=== PATIENT | male | born 1955 | race Caucasian/White ===

== ENCOUNTER 2016-12-13 18:38 | Observation (INO) | payer MEDICAID, OTHER ==
[~2016-12-13] VITALS: Ht 172.7 cm; Wt 81.5 kg
[~2016-12-13 18:38] MED LIST: AMLO-147 PO; CLON-379 PO; DOXA4TAB PO; FOLI-49 PO; ISOS10TA PO; SEVE800T10 PO; SIMV20TA2 PO
[2016-12-13 21:14] LABS: ADD SCAN DIFF NO
[2016-12-13 21:16] LABS: BASOPHILS % 0.4 % (0.0-2.0); EOSINOPHILS # 0.3 10^3/ul (0.0-0.5); EOSINOPHILS % 3.5 % (0.0-7.0); LYMPHOCYTES # 1.1 10^3/ul (0.8-2.9); LYMPHOCYTES % 14.1 % (15.0-51.0); MEAN CORPUSCULAR HEMOGLOBIN 30.5 pg (29.0-33.0); MEAN CORPUSCULAR HGB CONC 32.4 g/dl (32.0-37.0); MEAN CORPUSCULAR VOLUME 94.2 fl (82.0-101.0); MEAN PLATELET VOLUME 10.6 fl (7.4-10.4); MONOCYTE # 0.9 10^3/ul (0.3-0.9); MONOCYTES % 10.8 % (0.0-11.0); NEUTROPHIL # 5.6 10^3/ul (1.6-7.5); NEUTROPHILS % 70.8 % (39.0-77.0); PLATELET COUNT 231 10^3/UL (140-415); RED BLOOD COUNT 3.61 10^6/ul (4.70-6.10); RED CELL DISTRIBUTION WIDTH 13.5 % (11.5-14.5); WHITE BLOOD COUNT 7.9 10^3/ul (4.8-10.8)
[2016-12-13 21:31] LABS: INR 1.27; PT RATIO 1.3
[2016-12-13 21:32] LABS: PARTIAL THROMBOPLASTIN TIME 30.2 Sec (25.0-35.0)
[2016-12-13 21:38] LABS: ALBUMIN 4.4 g/dl (3.3-4.9); POTASSIUM 4.3 mmol/L (3.5-5.1)
[2016-12-13 21:41] LABS: ALBUMIN/GLOBULIN RATIO 1.25; CALCIUM 9.6 mg/dl (8.4-10.2); CREATININE 12.51 mg/dl (0.61-1.24); TOTAL PROTEIN 7.9 g/dl (6.1-8.1)
--- NOTE | 2016-12-13 21:47 | RADRPT ---
PROCEDURE: XR Chest. CLINICAL INDICATION: Possible sepsis. TECHNIQUE: PA and Lateral views of the chest were obtained. COMPARISON: 12/27/2015. FINDINGS: Right central venous line in place with tip in the superior vena cava versus superior vena cava righ t atrial junction. Cardiomegaly. Atherosclerotic calcifications in the thoracic aorta. Mild left lung base atelectasi s versus airspace disease. Right lung is clear. No signs of pleural fluid or pneumothorax are seen . The osseous structures and soft tissues are unremarkable. IMPRESSION: Mild left lung base atelectasis versus airspace disease. RPTAT: [facility] Physician Honorio Date Time Electronically viewed and signed by Physician Honorio on 12/13/2016 21:46 RS/
[2016-12-13 21:53] LABS: TROPONIN-I 0.03 ng/ml (0.00-0.12)
[2016-12-13] MEDS ORDERED: CEFEPIME 2GM/50 ML (PMX) 50 ML IVPB STA (22:09)
[2016-12-13] MEDS ORDERED: VANCOMYCIN 1 GM (PMX) 250 ML IVPB STA (22:09)
--- NOTE | 2016-12-13 22:23 | ERA ---
ER Documentation Chief Complaint Date/Time DATE: 12/13/16 TIME: 22:20 Chief Complaint cough x 2 wks, headache , loss of appetite dialysis pt, dialyzed yesterday HPI This is a 61-year-old male with a history of hypertension, diabetes, end-stage renal disease on dialysis Friday, , Friday who presents to the emergency room today for generalized weakness, and a cough for 2 weeks. The patient states that he has chills, and states that he sometimes has night sweats. The patient states that the cough has been progressively getting worse and he came to the emergency room for evaluation. ROS All systems reviewed and are negative except as per history of present illness. Medications Home Meds Reported Medications Sevelamer Hcl* (Renagel*) 800 Mg Tablet, 1600 MG PO WITH MEALS, TAB 05/23/15 Isosorbide (Isordil) 10 Mg Tab, 10 MG PO BID 01/04/13 Amlodipine Besylate* (Amlodipine Besylate*) 10 Mg Tablet, 1 TAB PO DAILY 04/28/12 Folic Acid* (Folic Acid*) 1 Mg Tablet, 1 TAB PO DAILY 04/28/12 Clonidine Hcl* (Clonidine Hcl*) 0.1 Mg Tab, 1 TAB PO TID 04/28/12 Doxazosin* (CARDURA*) 4 Mg Tablet, 1 TAB PO BID 04/28/12 Simvastatin (Simvastatin) 20 Mg Tablet, 1 TAB PO QHS 04/28/12 Allergies Allergies: Coded Allergies: No Known Allergy (Verified , 12/28/15) PMhx/Soc History of Surgery: Yes (fistula) Anesthesia Reaction: No Hx Neurological Disorder: No Hx Respiratory Disorders: No Hx Cardiac Disorders: Yes (HTN) Hx Psychiatric Problems: No Hx Miscellaneous Medical Probl: Yes (htn, ESRD,hyperkalemia,DM) Hx Alcohol Use: No Hx Substance Use: No Hx Tobacco Use: No Smoking Status: Never smoker Physical Exam Vitals Vital Signs Date Time Temp Pulse Resp B/P Pulse Ox O2 Delivery O2 Flow Rate FiO2 12/13/16 21:01 98.9 82 20 162/73 99 12/13/16 18:41 98.9 92 20 162/73 99 Physical Exam INITIAL VITAL SIGNS: Reviewed by me GENERAL: The patient is well developed and appropriate for usual state of health in no apparent distress HEENT: Pupils equal, round, and reactive to light. EOMI. There is no scleral icterus. NECK: C-spine is soft and supple, there is no meningismus. There is no cervical lymphadenopathy. LUNGS: Coarse breath sounds in the bilateral lower lobes HEART: Regular rate and rhythm, no murmurs, clicks, rubs or gallops. ABDOMEN: Soft, non-tender, non-distended. There are bowel sounds in all four quadrants. No rebound or guarding. EXTREMITIES: There is no peripheral cyanosis or edema. No focal swelling or erythema. NEUROLOGICAL: The patient moves all four extremities with 5/5 strength. Cranial nerves II - XII are intact. Normal gait. Alert and oriented SKIN: Dialysis catheter in anterior chest wall there is no apparent rash or petechiae. HEME/LYMPHATIC: There is no evidence of excessive bruising or lymphedema. PSYCHIATRIC: The patient does not appear anxious or depressed. Result Diagram: 12/13/16204412/13/162044 Results 24 hrs Laboratory Tests Test 12/13/16 20:45 White Blood Count 7.910^3/ul Red Blood Count 3.6110^6/ul Hemoglobin 11.0g/dl Hematocrit 34.0% Mean Corpuscular Volume 94.2fl Mean Corpuscular Hemoglobin 30.5pg Mean Corpuscular Hemoglobin Concent 32.4g/dl Red Cell Distribution Width 13.5% Platelet Count 75250^3/UL Mean Platelet Volume 10.6fl Neutrophils % 70.8% Lymphocytes % 14.1% Monocytes % 10.8% Eosinophils % 3.5% Basophils % 0.4% Nucleated Red Blood Cells % 0.0/100WBC Neutrophils # 5.610^3/ul Lymphocytes # 1.110^3/ul Monocytes # 0.910^3/ul Eosinophils # 0.310^3/ul Basophils # 0.010^3/ul Nucleated Red Blood Cells # 0.010^3/ul Prothrombin Time 16.0Sec Prothrombin Time Ratio 1.3 INR International Normalized Ratio 1.27 Activated Partial Thromboplast Time 30.2Sec Sodium Level 137mmol/L Potassium Level 4.3mmol/L Chloride Level 90mmol/L Carbon Dioxide Level 29mmol/L Anion Gap 22 Blood Urea Nitrogen 40mg/dl Creatinine 12.51mg/dl Glucose Level 117mg/dl Lactic Acid Level 0.9mmol/L Calcium Level 9.6mg/dl Total Bilirubin 0.0mg/dl Direct Bilirubin 0.00mg/dl Indirect Bilirubin 0.0mg/dl Aspartate Amino Transf (AST/SGOT) 16IU/L Alanine Aminotransferase (ALT/SGPT) 18IU/L Alkaline Phosphatase 67IU/L Troponin I 0.030ng/ml Total Protein 7.9g/dl Albumin 4.4g/dl Globulin 3.50g/dl Albumin/Globulin Ratio 1.25 Current Medications Medications (Trade) Dose Ordered Sig/Vivi Route PRN Reason Start Time Stop Time Status Last Admin Dose Admin Vancomycin HCl 250 ml @ 125 mls/hr ONCE STAT IVPB 12/13/16 22:09 12/14/16 00:08 Cefepime HCl (Maxipime 2gm/50 ml (Pmx)) 50 ml @ 100 mls/hr ONCE STAT IVPB 12/13/16 22:09 12/13/16 22:38 12/13/16 22:20 Procedures/MDM EKG: Rate/Rhythm: [Normal Sinus Rhythm] QRS, ST, T-waves: [No changes consistent w/ acute ischemia] Impression: [No evidence of ischemia or arrhythmia] Chest X-ray 1V Interpreted by me: Soft Tissue: Right lower lobe pneumonia Bones: No acute abnormalities Mediastinum/Cardiac Silhouette/Lungs: [No acute abnormalities] This 61-year-old male presents to the emergency room for evaluation of cough, generalized weakness. When I evaluated him this patient did appear to be in mild respiratory distress. He was placed on oxygen patient had a persistent cough. Septic workup was started on this patient as he did have a low-grade fever of 100F. This patient was found to have a right lower lobe pneumonia. I have spoken to this patient's admitting physician, would like this patient placed in observation and started on Levaquin. This patient will be placed in observation and Levaquin has been started. Departure Diagnosis: Primary Impression: Normocytic anemia Additional Impressions: Renal insufficiency Left lower lobe pneumonia Condition: Stable SERENA POND DO December 13, 2016 22:23
[2016-12-13 22:56] VITALS: TEMP 98.9
[2016-12-13] MEDS ORDERED: ACETAMINOPHEN 325 MG TAB PO PRN ×2 (23:00)
[2016-12-13] MEDS ORDERED: BISACODYL 10 MG SUPP PR PRN (23:00)
[2016-12-13] MEDS ORDERED: DOCUSATE SODIUM 100 MG CAP PO PRN (23:00)
[2016-12-13] MEDS ORDERED: MAGNESIUM HYDROXIDE 30ML CUP PO PRN (23:00)
[2016-12-13] MEDS ORDERED: ALBUTEROL 0.083% (NEB) 2.5 MG/3 ML AMP HHN PRN (23:00)
[2016-12-13] MEDS ORDERED: hydrALAzine 20 MG INJ IV PRN (23:00)
[2016-12-13] MEDS ORDERED: NACL 0.9% 3 ML SYG IV SCH (23:00)
[2016-12-13] MEDS ORDERED: LEVOFLOXACIN 750MG/D5W (PMX) 150 ML IVPB ONE (23:00)
[2016-12-13] MEDS ORDERED: ONDANSETRON 4 MG INJ IV PRN ×2 (23:00)
[2016-12-14] VITALS (18 sets, daily range): BP systolic 107–154; BP diastolic 52–70; PULSE 72–94; RESP 16–18; Ht 172.7 cm; Wt 81.5 kg
[2016-12-14] MEDS: ALBUTEROL 0.083% (NEB) 2.5 MG/3 ML AMP HHN SCH ×3 (01:38→15:55)
[2016-12-14 03:55] LABS: ADD SCAN DIFF NO
[2016-12-14 03:59] LABS: BASOPHILS % 0.5 % (0.0-2.0); EOSINOPHILS # 0.2 10^3/ul (0.0-0.5); EOSINOPHILS % 3.4 % (0.0-7.0); HEMATOCRIT 30.8 % (42.0-52.0); LYMPHOCYTES # 1.1 10^3/ul (0.8-2.9); MEAN CORPUSCULAR HEMOGLOBIN 30.8 pg (29.0-33.0); MEAN CORPUSCULAR HGB CONC 32.5 g/dl (32.0-37.0); MEAN CORPUSCULAR VOLUME 94.8 fl (82.0-101.0); MEAN PLATELET VOLUME 10.4 fl (7.4-10.4); MONOCYTE # 0.5 10^3/ul (0.3-0.9); MONOCYTES % 7.8 % (0.0-11.0); NEUTROPHIL # 4.6 10^3/ul (1.6-7.5); PLATELET COUNT 195 10^3/UL (140-415); RED BLOOD COUNT 3.25 10^6/ul (4.70-6.10); RED CELL DISTRIBUTION WIDTH 13.5 % (11.5-14.5); WHITE BLOOD COUNT 6.5 10^3/ul (4.8-10.8)
[2016-12-14 04:46] LABS: ALBUMIN 3.8 g/dl (3.3-4.9); ALBUMIN/GLOBULIN RATIO 1.22; CALCIUM 9.1 mg/dl (8.4-10.2); CHOL/HDL RATIO 5.2 RATIO; CREATININE 12.76 mg/dl (0.61-1.24); MAGNESIUM 2.4 mg/dl (1.7-2.5); PHOSPHORUS 4.8 mg/dl (2.5-4.9); POTASSIUM 4.2 mmol/L (3.5-5.1); TOTAL PROTEIN 6.9 g/dl (6.1-8.1)
[2016-12-14 04:57] LABS: TROPONIN-I 0.027 ng/ml (0.00-0.12)
[2016-12-14 05:02] LABS: CK-MB 1.14 ng/ml (0.0-2.4)
[2016-12-14 05:16] LABS: THYROID STIMULATING HORMONE 0.804 MIU/L (0.465-4.680)
[2016-12-14] MEDS ORDERED: AMLODIPINE 10 MG TAB PO SCH (09:00)
[2016-12-14] MEDS ORDERED: ISOSORBIDE DINITRATE 10 MG TAB PO SCH (09:00)
[2016-12-14] MEDS ORDERED: HEPARIN 5,000 UNIT/0.5 ML VIAL SC SCH (09:00)
[2016-12-14] MEDS ORDERED: FOLIC ACID 1 MG TAB PO SCH (09:00)
[2016-12-14] MEDS ORDERED: DOXAZOSIN 4 MG TAB PO SCH (09:00)
[2016-12-14] MEDS ORDERED: FAMOTIDINE 20 MG TAB PO SCH (09:00)
--- NOTE | 2016-12-14 09:59 | PDOCDIS ---
Discharge Instructions CONDITION Patient Condition: Good HOME CARE INSTRUCTIONS: Special Diet: renal diet ACTIVITY: Activity Restrictions: No Restrictions FOLLOW UP/APPOINTMENTS Appointments Follow up with PCP within 1 week Follow up with HD outpatient schedule MARV CABEZAS December 14, 2016 09:59
[2016-12-14] MEDS ORDERED: LEVO500T72 PO (10:01)
[2016-12-14] MEDS ORDERED: ALBU18HF INHALATION (10:01)
[2016-12-14] MEDS: SEVELAMER 800 MG TAB PO SCH ×3 (10:17→18:46)
--- NOTE | 2016-12-14 10:30 | HP ---
DATE OF ADMISSION: 12/13/2016 STORE MGR ON THIS ADMISSION: Dr. Suazo CHIEF COMPLAINT ON ADMISSION: Shortness of breath and cough. HISTORY OF PRESENT ILLNESS: This is a 61-year-old male with a history of hypertension, hypertensiv e nephropathy, end-stage renal disease, on hemodialysis for the past 4 years, who presented to the e mergency department with a complaint of 2 weeks of increasing cough and generalized weakness. [facility] is sick at home, everybody has some form of a URI that they are all pa ssing back and forth it looks like over the past few weeks. The patient started having symptoms 2 w eeks ago. He has been struggling for the past 2 weeks with increasing weakness and over the past 3 days a decreased appetite to the point where he was not eating much. He still managed to be complia nt with his dialysis. He has been going to his scheduled dialysis. His last one was this past sd. He has been afebrile. No nausea, no vomiting, but a decreased appetite. No chills. He is a ble still to ambulate. In the emergency department he was started on Levaquin, along with nebulizer treatments, and he is feeling much better this morning. He is on room air. He is able to lie flat . He is awaiting his dialysis this morning. I already talked to him this morning and the plan is t o discharge him after hemodialysis today. His chest x-ray is more consistent with bronchitis. Ther e is no discrete infiltrate, just atelectasis seen. He has been started on incentive spirometer ove rnight. Dr. Suazo has been consulted in order for the [facility] ALLERGIES: NO KNOWN ALLERGIES. PAST MEDICAL HISTORY: 1. Hypertension. 2. End-stage renal disease, on hemodialysis every Friday, and Friday. 3. Hyperlipidemia. 4. Chronic anemia secondary to end-stage renal disease. PAST SURGICAL HISTORY: Status post AV fistula placement and multiple repairs over the past 4 years. He currently has a PermCath for access for dialysis. REVIEW OF SYSTEMS: As per HPI. The patient denies any headache. He denies any productive cough, o nly a dry cough. He denies any neurological deficits. No chest pain. SOCIAL HISTORY: The patient lives at home. He denies any alcohol or tobacco use. Again, he has mu ltiple sick contacts at home, with multiple people having URI symptoms currently. OUTPATIENT MEDICATIONS: 1. Amlodipine 10 mg p.o. daily. 2. Clonidine 0.1 mg p.o. t.i.d. 3. Cardura 4 mg p.o. b.i.d. 4. Isordil 10 mg p.o. b.i.d. 5. Simvastatin 1 tab p.o. at bedtime. 6. Renagel 1 tablet, 600 mg p.o. before meals. 7. Folic acid 1 tab p.o. daily. PHYSICAL EXAMINATION: VITAL SIGNS: Temperature is 98.1, heart rate of 87, respiratory rate 16. Patient is saturating 99% on room air. Blood pressure is 140/66. GENERAL: He is alert and oriented x4. Currently he feels better. He was able to eat this morning. HEENT: Pupils are equally round and reactive to light. Extraocular muscles are intact. Anicteric sclerae. NECK: No JVD, no thyromegaly noted. HEART: Regular rate and rhythm. LUNGS: Clear to auscultation bilaterally. ABDOMEN: Soft, nontender, nondistended. EXTREMITIES: No edema, clubbing or cyanosis noted. CHEST WALL: He does have a right upper chest PermCath in place for dialysis access. LABORATORY DATA: White blood cell count is 6.5, hemoglobin 10.0, hematocrit 30.8. Differential on the white blood cell count is within normal. Chemistry with a sodium of 137, potassium 4.2, chlorid e 95, bicarbonate 27, BUN 43, creatinine of 12.76, glucose of 159. Lactic acid negative x3. Calciu m 9.1, phosphorus 4.8, magnesium 2.4, AST 14, ALT 26, alkaline phosphatase 59. Troponins are negati ve x3, along with cardiac enzymes. LFTs are within normal. TSH and free T4 are within normal. INR 1.27. EKG is normal sinus rhythm. No acute ST or T-wave abnormalities. Chest x-ray shows mild lung base atelectasis versus airspace disease. ASSESSMENT AND PLAN: This is a 61-year-old male with: 1. Upper respiratory infection, bronchitis, with some bronchospasms and coughing fits. It seems to be most likely viral, based on the history and on his laboratory data. I have prescribed him Levaq uin; however, to be taken for a total of 5 days, along with the Ventolin HFA at home and incentive s pirometer. The plan is for him to be discharged after dialysis today. He is euvolemic currently. Also I asked him to avoid sick contacts if possible. 2. End-stage renal disease, on hemodialysis. He is due for dialysis today. Dr. Suazo has been cont acted. 3. Hypertension. All his medications are resumed. He is well controlled and his cardiac enzymes a re negative during this admission. 4. Anemia of chronic disease. Stable hemoglobin. Continue folic acid. 5. Prophylaxis. Heparin subcutaneous for deep vein thrombosis prophylaxis. Pepcid for GI prophyla xis. DISPOSITION: The patient is due for dialysis today. Plan is to discharge him after dialysis. Dictated By: MARV HERNANDEZ/KEN Conf#: [id number] DID#: [id number]
[2016-12-14 10:55] LABS: TROPONIN-I 0.027 ng/ml (0.00-0.12)
[2016-12-14 11:03] LABS: CK-MB 1.43 ng/ml (0.0-2.4)
--- NOTE | 2016-12-14 15:24 | QN ---
Documentation Comment [id number] RENAL A/P ESRD URI/BRONCHITES HTN PLAN HD SRINATH SEE MD December 14, 2016 15:24
--- NOTE | 2016-12-14 15:26 | CONS ---
Date/Time of Note Date/Time of Note DATE: 12/14/16 TIME: 15:23 Assessment/Plan Assessment/Plan Chief Complaint/Hosp Course 1. End-stage renal disease, on hemodialysis every Friday, and Friday. 2. Hypertension, controlled 3. Hyperlipidemia, controlled. 4. Chronic anemia secondary to end-stage renal disease. 5. Left lower lobe pneumonia 6. Elevated ALT Problems: Additional Assessment/Plan 1. HD today Consultation Date/Type/Reason Admit Date/Time December 13, 2016 at 22:34 Initial Consult Date 12/13/2016 Type of Consultation: Nephrology Reason for Consultation Dr Suazo 24 HR Interval Summary Constitutional: chills, poor po Exam/Review of Systems Vital Signs Vitals Vital Signs Date Time Temp Pulse Resp B/P Pulse Ox O2 Delivery O2 Flow Rate FiO2 12/14/16 13:12 94 12/14/16 12:19 98.7 17 150/68 99 12/13/16 23:41 Room Air Intake and Output 12/13/16 12/13/16 12/14/16 15:00 23:00 07:00 Intake Total 400 ml Balance 400 ml Exam Constitutional: alert, oriented Psych: no complaints Head: normocephalic Eyes: nl conjunctiva ENMT: nl external ears & nose Neck: supple Respiratory: clear to auscultation Cardiovascular: regular rate and rhythm Gastrointestinal: soft Genitourinary - Male: nl penis, other (HD permacath right chest) Musculoskeletal: nl extremities to inspection Extremities: normal pulses Neurological: [employer] II-XII intact Skin: nl turgor Lymph: nl lymph nodes Results Result Diagram: 12/14/16 0346 12/14/16 0346 Results 24 hrs Laboratory Tests Test 12/13/16 20:45 12/13/16 21:00 12/13/16 22:00 12/14/16 01:10 White Blood Count 7.9 # Red Blood Count 3.61 L Hemoglobin 11.0 L Hematocrit 34.0 #L Mean Corpuscular Volume 94.2 Mean Corpuscular Hemoglobin 30.5 Mean Corpuscular Hemoglobin Concent 32.4 Red Cell Distribution Width 13.5 Platelet Count 231 Mean Platelet Volume 10.6 #H Neutrophils % 70.8 Lymphocytes % 14.1 L Monocytes % 10.8 Eosinophils % 3.5 Basophils % 0.4 Nucleated Red Blood Cells % 0.0 Neutrophils # 5.6 Lymphocytes # 1.1 Monocytes # 0.9 Eosinophils # 0.3 Basophils # 0.0 Nucleated Red Blood Cells # 0.0 Prothrombin Time 16.0 H Prothrombin Time Ratio 1.3 INR International Normalized Ratio 1.27 Activated Partial Thromboplast Time 30.2 Sodium Level 137 Potassium Level 4.3 Chloride Level 90 L Carbon Dioxide Level 29 Anion Gap 22 H Blood Urea Nitrogen 40 H Creatinine 12.51 H Glucose Level 117 Lactic Acid Level 0.9 1.0 1.1 Calcium Level 9.6 Total Bilirubin 0.0 L Direct Bilirubin 0.00 Indirect Bilirubin 0.0 Aspartate Amino Transf (AST/SGOT) 16 Alanine Aminotransferase (ALT/SGPT) 18 Alkaline Phosphatase 67 Troponin I 0.030 Total Protein 7.9 Albumin 4.4 Globulin 3.50 H Albumin/Globulin Ratio 1.25 B-Type Natriuretic Peptide 5310 H Test 12/14/16 03:46 12/14/16 09:45 White Blood Count 6.5 Red Blood Count 3.25 L Hemoglobin 10.0 L Hematocrit 30.8 L Mean Corpuscular Volume 94.8 Mean Corpuscular Hemoglobin 30.8 Mean Corpuscular Hemoglobin Concent 32.5 Red Cell Distribution Width 13.5 Platelet Count 195 Mean Platelet Volume 10.4 Neutrophils % 71.0 Lymphocytes % 17.0 Monocytes % 7.8 Eosinophils % 3.4 Basophils % 0.5 Nucleated Red Blood Cells % 0.0 Neutrophils # 4.6 Lymphocytes # 1.1 Monocytes # 0.5 Eosinophils # 0.2 Basophils # 0.0 Nucleated Red Blood Cells # 0.0 Sodium Level 137 Potassium Level 4.2 Chloride Level 95 L Carbon Dioxide Level 27 Anion Gap 19 H Blood Urea Nitrogen 43 H Creatinine 12.76 H Glucose Level 159 Calcium Level 9.1 Phosphorus Level 4.8 Magnesium Level 2.4 Total Bilirubin 0.0 L Direct Bilirubin 0.00 Indirect Bilirubin 0.0 Aspartate Amino Transf (AST/SGOT) 14 L Alanine Aminotransferase (ALT/SGPT) 26 Alkaline Phosphatase 59 Creatine Kinase 453 H 458 H Creatine Kinase Index 0.3 0.3 Creatinine Kinase MB (Mass) 1.14 1.43 Troponin I 0.027 0.027 Total Protein 6.9 # Albumin 3.8 Globulin 3.10 Albumin/Globulin Ratio 1.22 Triglycerides Level 162 H Cholesterol Level 141 LDL Cholesterol, Calculated 82 HDL Cholesterol 27 L Cholesterol/HDL Ratio 5.2 Thyroid Stimulating Hormone (TSH) 0.804 Free Thyroxine 1.45 Medications Medications Current Medications Amlodipine Besylate (Norvasc) 10 mg DAILY PO Last administered on 12/14/16 10: 19; Admin Dose 10 MG; Start 12/14/16 at 09:00 Clonidine (Catapres) 0.1 mg TID PO Last administered on 12/14/16 14:55; Admin Dose 0.1 MG; Start 12/13/16 at 23:00 Doxazosin Mesylate (Cardura) 4 mg BID PO Last administered on 12/14/16 10:17; Admin Dose 4 MG; Start 12/14/16 at 09:00 Folic Acid (Folic Acid) 1 mg DAILY PO Last administered on 12/14/16 10:18; Admin Dose 1 MG; Start 12/14/16 at 09:00 Isosorbide Dinitrate (Isordil) 10 mg BID PO Last administered on 12/14/16 10: 18; Admin Dose 10 MG; Start 12/14/16 at 09:00 Atorvastatin Calcium (Lipitor) 10 mg DAILY@21 PO ; Start 12/14/16 at 21:00 Hydralazine HCl (Apresoline) 10 mg Q8H PRN IV ELEVATED SYSTOLIC BP; Start 12/13 at 23:00 Levofloxacin (Levaquin) 500 mg Q48H PO ; Start 12/15/16 at 23:00 Ondansetron HCl (Zofran Inj) 4 mg Q6H PRN IV NAUSEA AND/OR VOMITING; Start 07/20 at 23:00 Acetaminophen (Tylenol Tab) 650 mg Q6H PRN PO PAIN LEVEL 1-3 OR FEVER; Start at 23:00 Docusate Sodium (Colace) 100 mg Q12H PRN PO CONSTIPATION; Start 12/13/16 at 23: 00 Magnesium Hydroxide (Milk Of Mag) 30 ml DAILY PRN PO CONSTIPATION; Start at 23:00 Bisacodyl (Dulcolax Supp) 10 mg DAILY PRN LA CONSTIPATION; Start 12/13/16 at 23 :00 Famotidine (Pepcid) 20 mg DAILY PO Last administered on 12/14/16 10:18; Admin Dose 20 MG; Start 12/14/16 at 09:00 Heparin Sodium (Porcine) (Heparin (5000 Units/0.5 ml)) 5,000 unit Q12 SC Last administered on 12/14/16t 10:22; Admin Dose 5,000 UNIT; Start 12/14/16 at 09:00 PITA DEAN December 14, 2016 15:26
[2016-12-14] MEDS ORDERED: PHENOL 1.4% SOLN 180 ML BTL MT PRN (16:00)
--- NOTE | 2016-12-14 19:14 | CONS ---
DATE OF ADMISSION: 12/13/2016 DATE OF CONSULTATION: TYPE OF CONSULTATION: Nephrology. Thank you, Dr. Rosales, for kindly asking me to see this patient in nephrology consultation. HISTORY OF PRESENT ILLNESS: The patient is a 61-year-old male with a history of hypertension, ESRD, history of multiple AV valve revisions thrombectomy in the past, failed. The patient now has a Per m-A-Cath in the right chest. The patient also has a history of DVT of the right upper extremity. H e was on Coumadin. Patient goes to [facility] [place], presented to this hospital with compla ints of upper respiratory tract infection, bronchitis, bronchospasm, will be undergoing hemodialysis . The patient goes to dialysis Friday, and Friday. PAST MEDICAL HISTORY: The patient is positive for ESRD, hypertension, CAD, dyslipidemia, multiple A V graft revision thrombectomy, history of DVT of the right upper extremity in the past. ALLERGY HISTORY: NEGATIVE. FAMILY HISTORY: Negative. SOCIAL HISTORY: Negative at this point. MEDICATION HISTORY: The patient is currently on: 1. Albuterol. 2. Amlodipine. 3. Clonidine. 4. Cardura. 5. Folic acid. 6. Isosorbide. 7. Levofloxacin. 8. Renvela. 9. Simvastatin. REVIEW OF SYSTEMS HEENT: Unremarkable except the patient is complaining of some sore throat, respiratory insufficien cy. CARDIOVASCULAR: No chest pain, palpitation. ABDOMEN: Unremarkable. EXTREMITIES: Unremarkable. CENTRAL NERVOUS SYSTEM: Unremarkable. PHYSICAL EXAMINATION: GENERAL: The patient is awake, alert, anxious. VITAL SIGNS: Pulse 90, blood pressure 156/ . HEAD: Atraumatic, normocephalic. Pupils equal, reactive to light. NECK: Supple. LUNGS: Few rhonchi. CARDIOVASCULAR: S1, S2 normal. ABDOMEN: Soft, nontender. Bowel sounds positive. No palpable mass or hepatosplenomegaly. EXTREMITIES: No cyanosis, clubbing, or edema. CENTRAL NERVOUS SYSTEM: The patient is awake and alert with no focal deficit. LABORATORY DATA: Hematocrit 30.8, potassium 4.2. Chest x-ray shows the patient has mild left lung base atelectasis versus airspace disease. IMPRESSION: 1. Upper respiratory infection. 2. Bronchitis. 3. End-stage renal disease. 4. Hypertension. 5. Dyslipidemia. 6. Multiple atrioventricular valve revisions thrombectomy. PLAN: To continue renal diet. The patient is currently on cefepime, levofloxacin, vancomycin, the patient is on albuterol. The patient will also have Chloraseptic spray, hemodialysis. Orders were done. Thank you, Dr. Rosales, for kindly asking me to see this patient in consultation. Dictated By: SRINATH SEE MD BS/NTS Conf#: [id number] DID#: [id number]
[2016-12-14] MEDS ORDERED: ATORVASTATIN 10 MG TAB PO SCH (21:00)
--- NOTE | 2016-12-15 19:43 | DS ---
DATE OF ADMISSION: 12/13/2016 DATE OF DISCHARGE: 12/14/2016 PRIMARY CARE PHYSICIAN: Dr. Suazo PRIMARY EPIC PROFESSIONAL: Dr. Suazo CHIEF COMPLAINT ON ADMISSION: Shortness of breath and cough. BRIEF HISTORY OF PRESENT ILLNESS: This is a 61-year-old male with history of hypertension, hyperten sive nephropathy, end-stage renal disease on hemodialysis now for the past 4 years who presented to the emergency department with worsening cough and shortness of breath. The patient reported that he had sick contacts at home. Everybody is sick for the past 2 weeks, likely with viral bronchitis ba sed on description. He is also a dialysis patient. Therefore, [facility] the [facility]. HOSPITAL COURSE: The patient was admitted on telemetry. By hospital day #2, he has been on room ai r, able to lie flat. His cough is improved. Based on the workup, it looks like a viral bronchitis, most likely. I have explained to him that this can have a protracted course and he was given a pre scription for Levaquin and also Ventolin HFA for bronchospasms p.r.n. He has been dialyzed and disc harged postdialysis with outpatient PCP followup. DISPOSITION: Discharge home. DISCHARGE CONDITION: Stable. DISCHARGE DIET: Renal diet. DISCHARGE ACTIVITY: Resume home activity. FOLLOWUP: The patient is to follow up with Dr. Suazo as an outpatient. DISCHARGE DIAGNOSES: 1. Upper respiratory infection, bronchitis. 2. End-stage renal disease on hemodialysis. 3. Hypertension. 4. Anemia of chronic disease. DISCHARGE MEDICATIONS: 1. Albuterol 2 puffs inhaled every 6 hours as needed for shortness of breath. 2. Levaquin 500 mg p.o. q.48h. for 5 days. 3. Norvasc 10 mg p.o. daily. 4. Clonidine 0.1 mg p.o. t.i.d. 5. Cardura 4 mg p.o. b.i.d. 6. Folic acid 1 mg p.o. daily. 7. Isosorbide 10 mg p.o. b.i.d. 8. Sevelamer 1 tablet 600 mg p.o. q.a.c. 9. Simvastatin 20 mg p.o. at bedtime. Dictated By: MARV HERNANDEZ/KEN Conf#: [id number] [facility]#: [id number]
[2016-12-15] MEDS ORDERED: LEVOFLOXACIN 500 MG TAB PO SCH (23:00)
== END 2016-12-14 19:40 | disposition home or self-care (01) ==
LOC: E/R 18:38 → MS4 22:34
PROVIDERS: ADMIT Internal Medicine; ATTEND Internal Medicine
DX: J06.9 Acute upper respiratory infection, unspecified (principal); J40 Bronchitis, not specified as acute or chronic; E11.22 Type 2 diabetes mellitus with diabetic chronic kidney disease; I12.0 Hypertensive chronic kidney disease with stage 5 chronic kidney disease or end stage renal disease; N18.6 End stage renal disease; Z99.2 Dependence on renal dialysis; D63.1 Anemia in chronic kidney disease; I25.10 Atherosclerotic heart disease of native coronary artery without angina pectoris; Z86.718 Personal history of other venous thrombosis and embolism
CPT/HCPCS: 36415; 71010; 80053; 80061; 82550; 82553; 83605; 83735; 83880; 84100; 84439; 84443; 84484; 85025; 85610; 85730; 87040; 90935; 93005; 94664; 96372; 96374; 96375; J0692; J1644; J1956; J3370; Z7500; Z7502; Z7610; 81003; G0378

== ENCOUNTER 2017-02-07 08:55 | Emergency (ER) | payer OTHER ==
[~2017-02-07] VITALS: Wt 80.0 kg
[~2017-02-07 08:55] MED LIST changes: +ALBU18HF INHALATION; +LEVO500T72 PO
[2017-02-07] MEDS ORDERED: SOD CHLORIDE 0.9% 1,000 ML IV STA (09:11)
[2017-02-07 09:48] LABS: ADD SCAN DIFF NO
--- NOTE | 2017-02-07 09:51 | RADRPT ---
PROCEDURE: CT Brain without contrast. CLINICAL INDICATION: Syncope. TECHNIQUE: A CT of the brain was performed on a multi-slice CT scanner utilizing axial sections fr om the skull base through the vertex without contrast. Coronal and sagittal reconstructed images wer e provided. One or more of the following does reduction techniques were used: Automated exposure c ontrol; adjustment of the mA and/or kV according to patient size; use of the aorta of reconstruction technique. Images were reviewed on a high-resolution PACS workstation. Exam DLP equals 630.2 mGy-c m. The CTDI equals 41.74 mGy COMPARISON: None available FINDINGS: Mild diffuse cerebral and cerebellar atrophy is present. There is no evidence of intracranial hemor rhage, mass effect or midline shift. No abnormal intra-axial or extra-axial fluid collections are s een. There are deep white matter patchy hypodensities which are nonspecific, but typically seen in small vessel chronic ischemic disease. Incidental note is made of a 4.2 x 2.5 cm subarachnoid cyst in the left temporal fossa. The density of the brain is otherwise normal and the benson/white matter d ifferentiation is well preserved. The osseous structures and visualized paranasal sinuses are unrem arkable. Vascular calcifications are identified. IMPRESSION: 1. No CT evidence of acute intracranial pathology. 2. Mild diffuse atrophy and deep white matter microangiopathic ischemic changes. 3. Atherosclerotic calcifications of the intracranial carotid arteries. RPTAT: KK .Deniz Salomon MD, MD Date Time Electronically viewed and signed by .Deniz Salomon MD, MD on 02/07/2017 09:51 .B/
[2017-02-07 09:56] LABS: BASOPHIL # 0.1 10^3/ul (0.0-0.1); BASOPHILS % 1.2 % (0.0-2.0); EOSINOPHILS # 0.2 10^3/ul (0.0-0.5); EOSINOPHILS % 3.9 % (0.0-7.0); HEMATOCRIT 37.3 % (42.0-52.0); HEMOGLOBIN 12.2 g/dl (14.0-18.0); LYMPHOCYTES # 1.3 10^3/ul (0.8-2.9); LYMPHOCYTES % 26.2 % (15.0-51.0); MEAN CORPUSCULAR HGB CONC 32.7 g/dl (32.0-37.0); MEAN CORPUSCULAR VOLUME 91.9 fl (82.0-101.0); MEAN PLATELET VOLUME 10.9 fl (7.4-10.4); MONOCYTE # 0.4 10^3/ul (0.3-0.9); MONOCYTES % 7.4 % (0.0-11.0); NEUTROPHIL # 3.1 10^3/ul (1.6-7.5); NEUTROPHILS % 61.1 % (39.0-77.0); PLATELET COUNT 214 10^3/UL (140-415); RED BLOOD COUNT 4.06 10^6/ul (4.70-6.10); RED CELL DISTRIBUTION WIDTH 13.2 % (11.5-14.5); WHITE BLOOD COUNT 5.1 10^3/ul (4.8-10.8)
[2017-02-07 10:12] LABS: INR 1.18; PROTIME 15.1 Sec (12.2-14.2); PT RATIO 1.2
--- NOTE | 2017-02-07 10:22 | ERD ---
ER Documentation Chief Complaint Date/Time DATE: 02/07/17 TIME: 10:20 Chief Complaint syncope. diaphoretic, blood sugar 152 in field, dialysis t,th, sat HPI This 61-year-old male comes emergency room for near syncopal episode where he was outside in his yard when he was doing something with a hose when he suddenly became very lightheaded and went down to the ground. He denies any chest pain or shortness of breath. He now feels shaky and sweaty. He states that whenever he gets up too quick he gets lightheaded like he was however this is the worst episode he has had. ROS All systems reviewed and are negative except as per history of present illness. Medications Home Meds Active Scripts Albuterol Sulfate* (Ventolin HFA*) 18 Gm Hfa.aer.ad, 2 PUFF INHALATION Q6H for SHORTNESS OF BREATH, #1 INHALER Prov:Falguni CABEZASSoumyaERIK Thompson 12/14/16 Levofloxacin* (Levaquin*) 500 Mg Tablet, 500 MG PO Q48H for 5 Days, TAB Prov:JOCELYNNFalguniSoumyaERIK Thompson 12/14/16 Reported Medications Sevelamer Hcl* (Renagel*) 800 Mg Tablet, 1600 MG PO WITH MEALS, TAB 05/23/15 Isosorbide (Isordil) 10 Mg Tab, 10 MG PO BID 01/04/13 Amlodipine Besylate* (Amlodipine Besylate*) 10 Mg Tablet, 1 TAB PO DAILY 04/28/12 Folic Acid* (Folic Acid*) 1 Mg Tablet, 1 TAB PO DAILY 04/28/12 Clonidine Hcl* (Clonidine Hcl*) 0.1 Mg Tab, 1 TAB PO TID 04/28/12 Doxazosin* (CARDURA*) 4 Mg Tablet, 1 TAB PO BID 04/28/12 Simvastatin (Simvastatin) 20 Mg Tablet, 1 TAB PO QHS 04/28/12 Allergies Allergies: Coded Allergies: No Known Allergy (Verified , 12/28/15) PMhx/Soc History of Surgery: Yes (3 dialysis fistula surgeries lue) Anesthesia Reaction: No Hx Neurological Disorder: No Hx Respiratory Disorders: No Hx Cardiac Disorders: Yes (htn) Hx Psychiatric Problems: No Hx Miscellaneous Medical Probl: Yes (dialysis t, th, sat access to [facility]) Hx Alcohol Use: No Hx Substance Use: No Hx Tobacco Use: No Smoking Status: Never smoker Physical Exam Vitals Vital Signs Date Time Temp Pulse Resp B/P Pulse Ox O2 Delivery O2 Flow Rate FiO2 02/07/17 09:05 97.7 88 20 145/78 100 Physical Exam Const: [] Mild distress Head: Atraumatic Eyes: Normal Conjunctiva, EOMI, PERRLA ENT: Normal External Ears, Nose and Mouth. Neck: Full range of motion..~ No meningismus. Resp: Clear to auscultation bilaterally Cardio: Regular rate and rhythm, no murmurs Abd: Soft, non tender, non distended. Normal bowel sounds Skin: No petechiae or rashes Back: No midline or flank tenderness Ext: No cyanosis, or edema, slight diaphoresis Neur: Awake and alert and oriented 3, cranial nerves II through XII intact, no cerebellar deficits, normal gait Psych: Normal Mood and Affect Result Diagram: 02/07/17 0940 Results 24 hrs Laboratory Tests Test 02/07/17 09:40 White Blood Count 5.110^3/ul Red Blood Count 4.0610^6/ul Hemoglobin 12.2g/dl Hematocrit 37.3% Mean Corpuscular Volume 91.9fl Mean Corpuscular Hemoglobin 30.0pg Mean Corpuscular Hemoglobin Concent 32.7g/dl Red Cell Distribution Width 13.2% Platelet Count 54065^3/UL Mean Platelet Volume 10.9fl Neutrophils % 61.1% Lymphocytes % 26.2% Monocytes % 7.4% Eosinophils % 3.9% Basophils % 1.2% Nucleated Red Blood Cells % 0.0/100WBC Neutrophils # 3.110^3/ul Lymphocytes # 1.310^3/ul Monocytes # 0.410^3/ul Eosinophils # 0.210^3/ul Basophils # 0.110^3/ul Nucleated Red Blood Cells # 0.010^3/ul Prothrombin Time 15.1Sec Prothrombin Time Ratio 1.2 INR International Normalized Ratio 1.18 Activated Partial Thromboplast Time 24.0Sec Current Medications Medications (Trade) Dose Ordered Sig/Vivi Route PRN Reason Start Time Stop Time Status Last Admin Dose Admin Sodium Chloride (NS) 1,000 ml @ 1,000 mls/hr Q1H STAT IV 02/07/17 09:11 02/07/17 10:10 DC Procedures/MDM EKG interpretation: Normal sinus rhythm rate of 84, normal axis, no ST changes concerning for acute ischemia, normal intervals. DERREK WHITTINGTON DO Feb 07, 2017 10:22
[2017-02-07 10:25] LABS: TROPONIN-I < 0.012 ng/ml (0.00-0.12)
[2017-02-07 10:29] LABS: ALANINE AMINOTRANSFERASE 16 IU/L (13-69); ALBUMIN 4.9 g/dl (3.3-4.9); ALBUMIN/GLOBULIN RATIO 1.88; ALKALINE PHOSPHATASE 81 IU/L (42-121); ANION GAP 23 (8-16); ASPARTATE AMINO TRANSFERASE 13 IU/L (15-46); BLOOD UREA NITROGEN 36 mg/dl (7-20); CALCIUM 10.4 mg/dl (8.4-10.2); CARBON DIOXIDE 21 mmol/L (21-31); CHLORIDE 103 mmol/L (97-110); CREATININE 10.31 mg/dl (0.61-1.24); GLUCOSE 134 mg/dl (70-220); POTASSIUM 4.4 mmol/L (3.5-5.1); SODIUM 143 mmol/L (135-144); TOTAL PROTEIN 7.5 g/dl (6.1-8.1)
[2017-02-07] MEDS ORDERED: LISI40TA9 PO (11:19)
--- NOTE | 2017-02-07 11:20 | RADRPT ---
PROCEDURE: XR Chest. CLINICAL INDICATION: 61-year-old male with chest pain. TECHNIQUE: Single frontal view of the chest was obtained. COMPARISON: Chest x-ray 12/27/2015 03:21 p.m. FINDINGS: And internal jugular dialysis catheter enters from a right subclavian approach with its tip in the s uperior vena cava. There is a suboptimal inspiration with some compressive atelectasis adjacent to the left diaphragm. There are vascular calcifications in the aortic arch. The bony elements are no rmal. The heart, cardiomediastinal silhouette and hilar structures are normal. The pulmonary vascul ature is normal. There is a left-sided aorta. The lungs are clear. The costophrenic angles are nor mal. IMPRESSION: 1. Atherosclerosis of the aortic arch. 2. Right chest wall tunneled dialysis catheter with its tip at the junction between the right atriu m and superior vena cava. RPTAT:AAJJ Physician Morena Date Time Electronically viewed and signed by Pedro Orlando Physician on 02/07/2017 11:20 NATHALIE/
[2017-02-07] MEDS ORDERED: CLON0.2T5 PO (11:21)
[2017-02-07] MEDS ORDERED: CALC667C PO (11:24)
[2017-02-07 12:05] VITALS: BP 143/99; PULSE 79; RESP 20; TEMP 98
== END 2017-02-07 12:09 | disposition home or self-care (01) ==
LOC: E/R 08:55
DX: R55 Syncope and collapse (principal); R53.1 Weakness; R42 Dizziness and giddiness; I10 Essential (primary) hypertension
CPT/HCPCS: 36415; 70450; 71010; 80053; 84443; 84484; 85025; 85610; 85730; 93005; J7030; Z7502

== ENCOUNTER 2017-09-26 02:16 | Inpatient (IN) | END 2017-09-29 20:16 | disposition home or self-care (01) | DRG 640 ==

== ENCOUNTER 2018-04-17 05:35 | Inpatient (IN) | END 2018-04-17 11:00 | disposition short-term general hospital (02) | DRG 270 ==

== ENCOUNTER 2018-05-05 12:09 | Emergency (ER) | END 2018-05-05 17:34 | disposition short-term general hospital (02) ==

== ENCOUNTER 2019-01-05 16:26 | Inpatient (IN) | payer OTHER ==
[~2019-01-05] VITALS: Ht 170.2 cm; Wt 80.0 kg
[~2019-01-05 16:26] MED LIST changes: -ALBU18HF INHALATION; +ASPI-817 PO; +ATOR-2 PO; -CLON-379 PO; +CLOP75TA27 PO; -DOXA4TAB PO; -FOLI-49 PO; +HYDR-3672 PO; +ISOS30TA67 PO; -LEVO500T72 PO; +LISI40TA3 PO; +METO-407 PO; +NITR0.4T32 SL; -SEVE800T10 PO; -SIMV20TA2 PO
[2019-01-05 16:36] VITALS: Ht 170.2 cm; Wt 80.0 kg
--- NOTE | 2019-01-05 17:34 | ERD ---
ER Documentation Chief Complaint Chief Complaint BIB RA FOR EVAL OF ABD PAIN AND CP. PT COMPLETED HD TODAY HPI The patient is a 63-year-old male, presenting to the ER by ambulance because of left upper quad abdominal pain for 20 minutes prior to arrival. According to EMS, he then complains of left-sided chest pain while he was on the ambulance. He was given one nitroglycerin and 325 mg aspirin. He is somewhat diaphoretic upon arrival and did not want to provide much history until later on. He complains of vague left-sided chest pain, left upper quad abdominal pain, denies vomiting, diarrhea. The pain is worse with laying down Past medical history: CAD, CKD on hemodialysis on Friday and Friday Past surgical history: Stent PCI ROS All systems reviewed and are negative except as per history of present illness. Medications Home Meds Reported Medications Cholecalciferol* (Vitamin D3*) 1,000 Unit Tablet, 1000 UNIT PO DAILY for 90 Days, #90 01/05/19 Folic Acid* (Folic Acid*) 1 Mg Tablet, 1 MG PO DAILY for 90 Days, #90 01/05/19 Doxazosin Mesylate* (Doxazosin Mesylate*) 4 Mg Tablet, 4 MG PO BID for 90 Days, #180 01/05/19 Cinacalcet* (Sensipar*) 30 Mg Tab, 30 MG PO DAILY for 30 Days, #30 01/05/19 Isosorbide Mononitrate* (Isosorbide Mononitrate*) 30 Mg Tab.er.24h, 30 MG PO DAILY, TAB 05/05/18 Atorvastatin* (Atorvastatin*) 80 Mg Tablet, 80 MG PO QHS, #30 TAB 05/05/18 Metoprolol Tartrate* (Lopressor*) 100 Mg Tablet, 100 MG PO BID, #60 TAB 05/05/18 Hydralazine Hcl* (Hydralazine Hcl*) 50 Mg Tab, 50 MG PO Q6H, #60 TAB 05/05/18 Aspirin* (Aspirin* EC) 81 Mg Tablet.dr, 81 MG PO DAILY, TAB 05/05/18 Nitroglycerin* (Nitroglycerin* SL) 0.4 Mg Tab.subl, 0.4 MG SL Q5MIN PRN for CHEST PAIN, BOTTLE 04/16/18 Lisinopril* (Lisinopril*) 40 Mg Tablet, 40 MG PO DAILY, #30 TAB 04/16/18 Isosorbide (Isordil) 10 Mg Tab, 10 MG PO BID 01/04/13 Amlodipine Besylate* (Amlodipine Besylate*) 10 Mg Tablet, 10 TAB PO DAILY 04/28/12 Discontinued Reported Medications Clopidogrel Bisulfate (Clopidogrel) 75 Mg Tablet, 75 MG PO DAILY, #30 TAB 05/05/18 Allergies Allergies: Coded Allergies: No Known Allergy (Unverified , 01/05/19) PMhx/Soc History of Surgery: Yes (Left arm fistula) Anesthesia Reaction: Yes Hx Neurological Disorder: No Hx Respiratory Disorders: No Hx Cardiac Disorders: Yes (HTN, HIGH CHOLESTEROL, SC) Hx Psychiatric Problems: No Hx Miscellaneous Medical Probl: No Hx Alcohol Use: No Hx Substance Use: No Hx Tobacco Use: Yes Smoking Status: Never smoker Physical Exam Vitals Vital Signs Date Temp Pulse Resp B/P (MAP) Pulse Ox O2 O2 Flow FiO2 Time Delivery Rate 01/05/19 94.3 57 16 98/44 (62) 100 Nasal 2.0 19:00 Cannula 01/05/19 66 18 113/56 99 Nasal 2.0 18:21 (75) Cannula 01/05/19 96.0 62 24 104/65 100 BIPAP 17:24 (78) 01/05/19 62 100 50 16:45 01/05/19 95.5 60 19 139/82 100 16:36 (101) Physical Exam Const: No acute distress. Head: Atraumatic. Eyes: Normal Conjunctiva. ENT: Normal External Ears, Nose and Mouth. Neck: Full range of motion. No meningismus. Resp: Clear to auscultation bilaterally. Cardio: Regular rate and rhythm. Abd: Soft, non distended, normal bowel sounds, mild LUQ tenderness. No rigidity/rebound/CVA tenderness Skin: No petechiae or rashes. Back: No midline or flank tenderness. Ext: No cyanosis, or edema. Neur: Awake and alert. Slow to response. Limited exam Psych: Normal Mood and Affect. Result Diagram: 01/05/19195401/05/19 0345 Results 24 hrs Laboratory Tests Test 01/05/19 16:29 01/05/19 16:33 01/05/19 16:38 01/05/19 16:42 Bedside Glucose 130 mg/dL Blood Gas Blood arterial Specimen Source Arterial Blood 01/05/2019 5:40:04 Date Drawn PM Arterial Blood pH 7.659 (Temp corrected) Arterial Blood 20.3 mmhg pCO2 (Temp correct) Arterial Blood 223.8 mmHG pO2 (Temp corrected) Arterial Blood 22.3 mmol/L HCO3 Arterial Blood 2.6 mmol/L Base Excess Arterial Blood 98.8 mmHG Oxygen Saturation Tong Test N/A Arterial Blood Right Brachial Gas Puncture Site Arterial 0.3 % Blood Carboxyhemo globin Arterial Blood 0.3 % Methemoglobin Blood Gas A-a O2 109.9 mmHg Differential Oxyhemoglobin 98.2 % Percent Blood Gas 37.0 C Temperature Blood Gas 16.0 Respiration Rate Blood Gas Actual 30 Respiration Rate Blood Gas MASK - BIPAP Modality FiO2 50.0 % Blood Gas 10 Pressure Support Blood Gas 15/5 IPAP/EPAP Ratio Blood Gas HEATH M.D. Critical Value Read Back Blood Gas MDA Notified Whom Blood Gas 01/05/2019 5:43:45 Notified Time PM White Blood Count 7.4 10^3/ul Red Blood Count 3.16 10^6/ul Hemoglobin 9.3 g/dl Hematocrit 29.1 % Mean Corpuscular 92.1 fl Volume Mean Corpuscular 29.4 pg Hemoglobin Mean Corpuscular 32.0 g/dl Hemoglobin Concen t Red Cell 14.9 % Distribution Width Platelet Count 106 10^3/UL Mean Platelet 11.7 fl Volume Immature 0.300 % Granulocytes % Neutrophils % 56.8 % Lymphocytes % 26.5 % Monocytes % 9.0 % Eosinophils % 6.5 % Basophils % 0.9 % Nucleated Red 0.0 /100WBC Blood Cells % Immature 0.020 10^3/ul Granulocytes # Neutrophils # 4.2 10^3/ul Lymphocytes # 2.0 10^3/ul Monocytes # 0.7 10^3/ul Eosinophils # 0.5 10^3/ul Basophils # 0.1 10^3/ul Nucleated Red 0.0 10^3/ul Blood Cells # Prothrombin Time 16.3 Sec Prothrombin Time 1.3 Ratio INR International 1.30 Normalized Ratio Activated 27.5 Sec Partial Thrombopl ast Time Sodium Level 138 mmol/L Potassium Level 3.8 mmol/L Chloride Level 102 mmol/L Carbon Dioxide 26 mmol/L Level Anion Gap 10 Blood Urea 32 mg/dl Nitrogen Creatinine 7.50 mg/dl Est Glomerular 7 mL/min Filtrat Rate mL/min Glucose Level 126 mg/dl Calcium Level 8.7 mg/dl Total Bilirubin 0.1 mg/dl Direct Bilirubin 0.00 mg/dl Indirect 0.1 mg/dl Bilirubin Aspartate Amino 14 IU/L Transf (AST/SGOT) Alanine 22 IU/L Aminotransferase (ALT/SGPT) Alkaline 67 IU/L Phosphatase Troponin I 0.016 ng/ml Total Protein 6.3 g/dl Albumin 3.8 g/dl Globulin 2.50 g/dl Albumin/Globulin 1.52 Ratio POC Venous 1.2 mmol/L Lactate Test 01/05/19 19:01 Lactic Acid Level 3.4 mmol/L Current Medications Medications Dose Sig/Vivi Start Time Status Last (Trade) Ordered Route PRN Stop Time Admin Dose Reason Admin Piperacillin 50 ml @ ONCE ONCE 01/05/19 DC Sod/ 100 mls/hr IVPB 19:30 01/05/19 Tazobactam 19:59 Sod Vancomycin 250 ml @ ONCE ONCE 01/05/19 DC HCl 125 mls/hr IVPB 19:30 01/05/19 21:29 Procedures/MDM [place] [address] Radiology Main Line: [phone] DIAGNOSTIC IMAGING REPORT Patient: AUGUSTUS THOMPSON : 1955 Age: 63 Sex: M MR #: [id number] DOS: 01/05/19 1752 Ordering MD: MARIANN HEATH MD Location: E/R Room/Bed: PROCEDURE: CT Brain without contrast. CLINICAL INDICATION: Headache. TECHNIQUE: A CT of the brain was performed utilizing axial sections from the skull base through the vertex without contrast. Multiplanar re-formations were generated. DICOM images are available. Images were reviewed on a high-resolution PACS workstation. CTDIvol: 39.04 mGy. DLP: 713.51 mGy-cm. One or more of the following dose reduction techniques were used: - Automated exposure control. - Adjustment of the mA and/or kV according to patient size. - Use of iterative reconstruction technique. COMPARISON: 02/07/2017 FINDINGS: There is mild to moderate cerebral volume loss. No hydrocephalus is seen. There is a 3.8 x 2.7 x 3.9 cm arachnoid cyst in the left middle cranial fossa, causing focal mass effect on the left temporal pole. There is no midline shift and the b steve cisterns are patent. No acute intracranial hemorrhage is identified. There is no extra-axial collection. No CT evidence of acute infarction is identified. There is patchy low attenuation in the supratentorial white matter, a nonspecific finding which most likely represents the sequela of mild chronic microvascular ischemic disease. There are moderate to severe atherosclerotic arterial calcifications. There is no significant mucosal disease in the paranasal sinuses. The right mastoid air cells are opacified. The osseous structures are unremarkable. The extracranial soft tissues are unremarkable. IMPRESSION: No acute intracranial pathology. Mild to mild cerebral volume loss. Mild chronic microvascular ischemic changes. 3.9 cm arachnoid cyst in the left middle cranial fossa, causing focal mass effect on the left temporal pole. This is unchanged since 02/07/2017. Atherosclerotic arterial calcifications. Opacification of the right mastoid air cells, raising the possibility mastoiditis. RPTAT: HTAR .Mark Gonzales MD, MD Date Time Electronically viewed and signed by .Mark Gonzlaes MD, MD on 01/05/2019 18:30 .R/ CC: MARIANN HEATH MD [id number] [place] [address] Radiology Main Line: [phone] DIAGNOSTIC IMAGING REPORT Patient: AUGUSTUS THOMPSON : 1955 Age: 63 Sex: M MR #: [id number] DOS: 01/05/19 1633 Ordering MD: MARIANN HEATH MD Location: E/R Room/Bed: PROCEDURE: CT Abdomen and Pelvis without contrast. CLINICAL INDICATION: Sepsis. TECHNIQUE: A CT scan of the abdomen and pelvis was performed without intravenous contrast. Coronal and sagittal reformatted images were generated. DICOM images are available. Images were reviewed on a high-resolution PACS workstation. CTDIvol: 19.93 mGy. DLP: 1289.32 mGy-cm. One or more of the following dose reduction techniques were used: - Automated exposure control. - Adjustment of the mA and/or kV according to patient size. - Use of iterative reconstruction technique. COMPARISON: None. FINDINGS: There are mild atelectatic changes in the lung bases. Severe coronary artery c alcifications are noted. Evaluation of the abdominal and pelvic viscera is limited by the lack of oral and intravenous contrast. The liver is unremarkable. The gallbladder is normal in appearance. The common bile duct is not dilated. The spleen is not enlarged. No pancreatic lesion is identified and there is no pancreatic ductal dilatation. The adrenal glands are unremarkable. The kidneys are nearly completely replaced with cysts, consistent with autosomal dominant polycystic kidney disease. There are moderate left renal subcapsular and perinephric hematomas. The blood extends superiorly into the left upper quadrant and inferiorly into the pelvis. There is no hydronephrosis. No urinary stone is identified. The small and large bowel are normal in caliber. The ascending and transverse colon are underdistended, limiting evaluation for colonic wall thickening. There is severe descending and sigmoid colon diverticulosis. The appendix is normal. The urinary bladder is empty. The pelvic organs are within normal limits. No lymphadenopathy is identified. There is a small volume of pelvic ascites. No pneumoperitoneum is seen. There are moderate to severe arterial calcifications. There is intramuscular lipoma in the left gluteus minimus. No suspicious osseous lesion is identified. IMPRESSION: Autosomal dominant polycystic kidney disease. Moderate left renal subcapsular and perinephric hematomas. The blood extends superiorly into the left upper quadrant and inferiorly into the pelvis. Severe descending and sigmoid colon diverticulosis. Small volume of pelvic ascites. Moderate to severe atherosclerotic calcifications in the abdomen and pelvis, severe coronary artery calcifications. Intramuscular lipoma in the left gluteus minimus. Call report: A call report of the findings was made to Dr. Heath at 06:36 p.m. on the date of the examination. RPTAT: HTAR .Mark Gonzales MD, MD Date Time Electronically viewed and signed by .Mark Gonzales MD, MD on 01/05/2019 18:40 .R/ CC: MARIANN HEATH MD [phone] [place] [address] Radiology Main Line: [phone] DIAGNOSTIC IMAGING REPORT Patient: AUGUSTUS THOMPSON : 1955 Age: 63 Sex: M MR #: [id number] DOS: 01/05/19 1633 Ordering MD: MARIANN HEATH MD Location: E/R Room/Bed: PROCEDURE: XR Chest. TECHNIQUE: Single frontal radiograph. CLINICAL INDICATION: Possible Sepsis COMPARISON: CR CHEST 12/27/2015; CR CHEST 01/04/2013; CR CHEST 08/24/2012. FINDINGS: Markedly low lung volumes. Bibasilar atelectasis. Hemidiaphragms remain well defined. There are overlying transcutaneous pacer pads potentially obscuring underlying findings. No evidence of focal consolidation, pneumothorax, or pleural effusion. No evidence of change in right dialysis catheter terminating at the cavoatrial junction. Cardiomediastinal silhouette is within normal limits, allowing for low lung volumes. Visualized osseous thorax is unremarkable. Overlying soft tissues are equally unremarkable. IMPRESSION: No evidence of acute cardiopulmonary process, allowing for markedly low lung volumes and bibasilar atelectasis with overlying transcutaneous pads. Right central venous dialysis catheter, unchanged in position. RPTAT: EE Physician Jorge Date Time Electronically viewed and signed by Physician Jorge on 01/05/2019 17:14 BP/ CC: MARIANN HEATH MD [id number] EK hr Read by emergency physician Rate/Rhythm: Normal Sinus Rhythm 63 beats/min QRS, ST, T-waves: No ST elevation, no T inversion, prolong QT Impression: Abnormal EKG EK hr Read by emergency physician Rate/Rhythm: Normal Sinus Rhythm 67 beats/min QRS, ST, T-waves: No ST elevation, no T inversion Impression: Normal EKG MEDICAL MAKING DECISION: The patient is a 63-year-old male, presenting with acute left renal subcapsular and perinephric hematomas, thrombocytopenia, left mastoiditis, hypothermia, chest pain. I discussed the patient with the on-call general surgeon Dr. Tamez who recommended Urology. He was evaluated by urologist Dr Swift at 8p who recommended renal artery embolization by interventional radiologist. His hemoglobin dropped from 9.3 to 7.4 in a few hours. His BP is dropping as well. He was immediately treated with Levophed drip to maintain his BP while we were waiting for blood transfusion. I have ordered to transfuse 4 units pRBC. I was able to talk to the interventional radiologist Dr Gracia at 8:15p, was made aware of the lab, the treatment, the patient condition and he is coming in to the ER to do the renal artery embolization He was hypothermic, and treated with Moira hugger, Zosyn IV, vancomycin IV empirically The differential diagnoses considered include but are not limited to rupture renal subcapsular hematoma, splenic rupture, pyelonephritis, AAA, ACS Central Line Placement by me: After the patient was consented and a time out was performed, appropriate hand hygiene was performed, the skin site was fully prepped and maximal sterile barrier technique was employed where the patient was sterilely draped, and the provider wore a mask and sterile gown and gloves. Anesthesia: 1% lidocaine locally Location: R femoral v Device: Multiple lumen Technique: Seldinger technique. Secured with suture. Results: Venous return from all ports with easy saline flush. No complications. []Guide wire retrieved and disposed of. ED Ultrasound: Central line placed by me using concurrent ultrasound guidance done using sterile technique. Real time image archived in the medical record confirms vascular anatomy. Critical Care: Time: 35 minutes excluding all billable procedures. Treatments/Evaluations: Close monitoring and treatment of unstable vital signs, cardiorespiratory, and neurologic status, while maintaining tight balance of fluid, respiratory, and cardiac interventions. He left the ER to [facility] in stable condition, vital signs stable Departure Diagnosis: Primary Impression: Renal hematoma Additional Impressions: Mastoiditis Anemia Thrombocytopenia Chest pain Hypothermia Condition: Critical Comments I discussed the findings with the patient. I discussed the patient with Dr Licea at 7:30p , who was made aware of the lab, the treatment, the patient condition and my discussions with the consultants. The patient is admitted to [facility] Disclaimer: Inadvertent spelling and grammatical errors are likely due to EHR/dictation software use and do not reflect on the overall quality of patient care. Also, please note that the electronic time recorded on this note does not necessarily reflect the actual time of the patient encounter. MARIANN HEATH MD Jan 05, 2019 17:34
[2019-01-05] MEDS ORDERED: PIPER-TAZO 2.25 GM (PMX) 50 ML IVPB ONE (19:30)
[2019-01-05] MEDS ORDERED: VANCOMYCIN 1 GM (PMX) 250 ML IVPB ONE (19:30)
[2019-01-05] MEDS ORDERED: NORepinephrine 8MG/250 ML (PMX 250 ML ONE (19:47)
[2019-01-05] MEDS: NORepinephrine 8MG/250 ML (PMX 250 ML IV SCH (19:55)
--- NOTE | 2019-01-05 20:21 | CONS ---
Assessment/Plan Assessment/Plan Hospital Course (Demo Recall) 63-year-old male, presented to the ER by ambulance because of left upper quadrant abdominal pain for 20 minutes prior to arrival. According to EMS, he then complains of left-sided chest pain while he was on the ambulance. He was given one nitroglycerin and 325 mg aspirin. He is somewhat diaphoretic upon arrival and did not want to provide much history until later on. He complains of vague left-sided chest pain, left upper quadrant abdominal pain, denies vomiting, diarrhea. He does have a history of coronary artery disease status post stent placement and chronic kidney disease on hemodialysis on Tuesdays, and Friday. CT scan of the abdomen and pelvis showed: Autosomal dominant polycystic kidney disease. Moderate left renal subcapsular and perinephric hematomas. The blood extends superiorly into the left upper quadrant and inferiorly into the pelvis. Severe descending and sigmoid colon diverticulosis. Small volume of pelvic ascites. Moderate to severe atherosclerotic calcifications in the abdomen and pelvis, severe coronary artery calcifications. Intramuscular lipoma in the left gluteus minimus Presently the patient is in pain and his blood pressure has come down. Patient has been on Plavix. He may be bleeding from hemorrhagic cysts from his polycystic kidney disease. Recommend blood transfusions as needed and if he continues to bleed at the hematoma continues to expand he will need the radiologist to do left renal artery embolization. Consultation Date/Type/Reason Admit Date/Time Date of Consultation: Jan 05, 2019 Type of Consult Urology Reason for Consultation Retroperitoneal bleeding Requesting Provider: MARIANN HEATH MD Date/Time of Note DATE: 01/05/19 TIME: 20:09 Hx of Present Illness 63-year-old male, presented to the ER by ambulance because of left upper quadrant abdominal pain for 20 minutes prior to arrival. According to EMS, he then complains of left-sided chest pain while he was on the ambulance. He was given one nitroglycerin and 325 mg aspirin. He is somewhat diaphoretic upon arrival and did not want to provide much history until later on. He complains of vague left-sided chest pain, left upper quadrant abdominal pain, denies vomiting, diarrhea. He does have a history of coronary artery disease status post stent placement and chronic kidney disease on hemodialysis on Tuesdays, and Friday. CT scan of the abdomen and pelvis showed: Autosomal dominant polycystic kidney disease. Moderate left renal subcapsular and perinephric hematomas. The blood extends superiorly into the left upper quadrant and inferiorly into the pelvis. Severe descending and sigmoid colon diverticulosis. Small volume of pelvic ascites. Moderate to severe atherosclerotic calcifications in the abdomen and pelvis, severe coronary artery calcifications. Intramuscular lipoma in the left gluteus minimus Presently the patient is in pain and his blood pressure has come down. Past Medical History Medical History: coronary artery disease, renal disease Home Meds Reported Medications Cholecalciferol* (Vitamin D3*) 1,000 Unit Tablet, 1000 UNIT PO DAILY for 90 Days, #90 01/05/19 Folic Acid* (Folic Acid*) 1 Mg Tablet, 1 MG PO DAILY for 90 Days, #90 01/05/19 Doxazosin Mesylate* (Doxazosin Mesylate*) 4 Mg Tablet, 4 MG PO BID for 90 Days, #180 01/05/19 Cinacalcet* (Sensipar*) 30 Mg Tab, 30 MG PO DAILY for 30 Days, #30 01/05/19 Isosorbide Mononitrate* (Isosorbide Mononitrate*) 30 Mg Tab.er.24h, 30 MG PO DAILY, TAB 05/05/18 Atorvastatin* (Atorvastatin*) 80 Mg Tablet, 80 MG PO QHS, #30 TAB 05/05/18 Metoprolol Tartrate* (Lopressor*) 100 Mg Tablet, 100 MG PO BID, #60 TAB 05/05/18 Hydralazine Hcl* (Hydralazine Hcl*) 50 Mg Tab, 50 MG PO Q6H, #60 TAB 05/05/18 Aspirin* (Aspirin* EC) 81 Mg Tablet.dr, 81 MG PO DAILY, TAB 05/05/18 Nitroglycerin* (Nitroglycerin* SL) 0.4 Mg Tab.subl, 0.4 MG SL Q5MIN PRN for CHEST PAIN, BOTTLE 04/16/18 Lisinopril* (Lisinopril*) 40 Mg Tablet, 40 MG PO DAILY, #30 TAB 04/16/18 Isosorbide (Isordil) 10 Mg Tab, 10 MG PO BID 01/04/13 Amlodipine Besylate* (Amlodipine Besylate*) 10 Mg Tablet, 10 TAB PO DAILY 04/28/12 Discontinued Reported Medications Clopidogrel Bisulfate (Clopidogrel) 75 Mg Tablet, 75 MG PO DAILY, #30 TAB 05/05/18 Medications Current Medications Vancomycin HCl 250 ml @ 125 mls/hr ONCE ONCE IVPB ; Start 01/05/19 at 19:30; Stop 01/05/19 at 21:29 Norepinephrine 250 ml @ 1.875 mls/ hr TITRATE IV Last administered on 01/05/19at 19:55; Admin Dose 9.375 MLS/HR; Start 01/05/19 at 20:00 Allergies: Coded Allergies: No Known Allergy (Unverified , 01/05/19) Past Surgical History Past Surgical Hx: other (Renal dialysis access with fistulas) Social History Smoking Status: Never smoker Exam/Review of Systems Exam Vitals Vital Signs Date Temp Pulse Resp B/P (MAP) Pulse Ox O2 O2 Flow FiO2 Time Delivery Rate 01/05/19 55 24 83/55 (64) 100 Nasal 2.0 20:01 Cannula 01/05/19 94.3 19:00 01/05/19 50 16:45 Constitutional: alert Gastrointestinal: distended, tender (Mostly left side) Results Result Diagram: 01/05/19195401/05/19 1638 Results 24hrs Laboratory Tests Test 01/05/19 16:29 01/05/19 16:33 01/05/19 16:38 01/05/19 16:42 Bedside Glucose 130 Blood Gas Specimen Blood arterial Source Arterial Blood 01/05/2019 5:40:04 Date Drawn PM Arterial Blood pH 7.659 *H (Temp corrected) Arterial Blood 20.3 L pCO2 (Temp correct) Arterial Blood pO2 223.8 H (Temp corrected) Arterial Blood 22.3 HCO3 Arterial Blood 2.6 Base Excess Arterial Blood 98.8 H Oxygen Saturation Tong Test N/A Arterial Blood Gas Right Brachial Puncture Site Arterial 0.3 Blood Carboxyhemog lobin Arterial Blood 0.3 Methemoglobin Blood Gas A-a O2 109.9 H Differential Oxyhemoglobin 98.2 Percent Blood Gas 37.0 Temperature Blood Gas 16.0 Respiration Rate Blood Gas Actual 30 Respiration Rate Blood Gas Modality MASK - BIPAP FiO2 50.0 Blood Gas Pressure 10 Support Blood Gas 15/5 IPAP/EPAP Ratio Blood Gas Critical HEATH M.D. Value Read Back Blood Gas Notified MDA Whom Blood Gas Notified 01/05/2019 5:43:45 Time PM White Blood Count 7.4 # Red Blood Count 3.16 L Hemoglobin 9.3 L Hematocrit 29.1 L Mean Corpuscular 92.1 Volume Mean Corpuscular 29.4 Hemoglobin Mean Corpuscular 32.0 Hemoglobin Concent Red Cell 14.9 H Distribution Width Platelet Count 106 #L Mean Platelet 11.7 H Volume Immature 0.300 Granulocytes % Neutrophils % 56.8 Lymphocytes % 26.5 Monocytes % 9.0 Eosinophils % 6.5 Basophils % 0.9 Nucleated Red 0.0 Blood Cells % Immature 0.020 Granulocytes # Neutrophils # 4.2 Lymphocytes # 2.0 Monocytes # 0.7 Eosinophils # 0.5 Basophils # 0.1 Nucleated Red 0.0 Blood Cells # Prothrombin Time 16.3 H Prothrombin Time 1.3 Ratio INR International 1.30 Normalized Ratio Activated 27.[address] Time Sodium Level 138 Potassium Level 3.8 Chloride Level 102 Carbon Dioxide 26 Level Anion Gap 10 Blood Urea 32 H Nitrogen Creatinine 7.50 H Est Glomerular 7 L Filtrat Rate mL/min Glucose Level 126 Calcium Level 8.7 Total Bilirubin 0.1 L Direct Bilirubin 0.00 Indirect Bilirubin 0.1 Aspartate Amino 14 L Transf (AST/SGOT) Alanine 22 Aminotransferase ( ALT/SGPT) Alkaline 67 Phosphatase Troponin I 0.016 Total Protein 6.3 Albumin 3.8 Globulin 2.50 Albumin/Globulin 1.52 Ratio POC Venous Lactate 1.2 Test 01/05/19 19:01 01/05/19 19:55 Lactic Acid Level 3.4 *H White Blood Count 11.5 #H Red Blood Count 2.50 #L Hemoglobin 7.4 #L Hematocrit 23.2 #L Mean Corpuscular 92.8 Volume Mean Corpuscular 29.6 Hemoglobin Mean Corpuscular 31.9 L Hemoglobin Concent Red Cell 15.1 H Distribution Width Platelet Count 105 L Mean Platelet 12.5 H Volume Immature 1.200 H Granulocytes % Neutrophils % 78.6 H Lymphocytes % 13.8 L Monocytes % 4.2 Eosinophils % 1.5 Basophils % 0.7 Nucleated Red 0.0 Blood Cells % Immature 0.140 H Granulocytes # Neutrophils # 9.0 H Lymphocytes # 1.6 Monocytes # 0.5 Eosinophils # 0.2 Basophils # 0.1 Nucleated Red 0.0 Blood Cells # Imaging Imaging CT scan of the abdomen and pelvis: Autosomal dominant polycystic kidney disease. Moderate left renal subcapsular and perinephric hematomas. The blood extends superiorly into the left upper quadrant and inferiorly into the pelvis. Severe descending and sigmoid colon diverticulosis. Small volume of pelvic ascites. Moderate to severe atherosclerotic calcifications in the abdomen and pelvis, severe coronary artery calcifications. Intramuscular lipoma in the left gluteus minimus Medications Medication Current Medications Vancomycin HCl 250 ml @ 125 mls/hr ONCE ONCE IVPB ; Start 01/05/19 at 19:30; Stop 01/05/19 at 21:29 Norepinephrine 250 ml @ 1.875 mls/ hr TITRATE IV Last administered on 01/05/19at 19:55; Admin Dose 9.375 MLS/HR; Start 01/05/19 at 20:00 ANNEMARIE ESCOBAR MD Jan 05, 2019 20:20
[2019-01-05] MEDS ORDERED: ZOLPIDEM 5 MG TAB PO PRN (21:00)
[2019-01-05] MEDS ORDERED: SOD CHLORIDE 0.9% 500 ML ONE (21:20)
[2019-01-05] MEDS ORDERED: IODIXANOL LOCM 100 ML BTL ONE (21:20)
[2019-01-05] MEDS ORDERED: CINA30TA4 PO (22:13)
[2019-01-05] MEDS ORDERED: FOLI-49 PO (22:13)
[2019-01-05] MEDS ORDERED: DOXA4TAB3 PO (22:13)
[2019-01-05] MEDS ORDERED: CHOL100062 PO (22:13)
[2019-01-05] MEDS ORDERED: SOD CHLORIDE 0.9% 1,000 ML IV SCH (23:00)
[2019-01-05 23:30] VITALS: PULSE 63; RESP 16
[2019-01-05 23:45] VITALS: BP 90/44; PULSE 67; RESP 24
[2019-01-06] VITALS (60 sets, daily range): BP systolic 77–171; BP diastolic 42–113; PULSE 49–80; RESP 11–29
--- NOTE | 2019-01-06 00:37 | HP ---
DATE OF ADMISSION: 01/05/2019 CHIEF COMPLAINT: Left-sided abdominal pain. HISTORY OF PRESENT ILLNESS: A 63-year-old male with polycystic kidney disease and endstage renal dis ease, on hemodialysis, presents to emergency room with complaint of severe left upper abdominal pain which started about half an hour prior to arrival by paramedics. While in the ambulance, the patient also complained of chest pain. He was given nitroglycerin and aspirin. Initial evaluation revealed diaphoresis. CAT scan of the abdomen and pelvis was performed in the ER. The study showed polycyst ic kidney disease and moderate left renal subcapsular and perinephric hematoma. There was also evide nce of moderate atherosclerotic disease in the abdomen, pelvis as well as coronary artery calcificati ons. The patient had persistent pain. Dr. Swift was consulted. Initial hemoglobin was 9.3. Repeat hem oglobin about 3 hours later was decreased to 7.4. The patient was noted to be hypotensive. He was s tarted on pressors. Left renal artery embolization was recommended. PAST MEDICAL HISTORY: 1. Coronary artery disease. 2. Hypertension. 3. Polycystic kidney disease. 4. Endstage renal disease, on hemodialysis. MEDICATIONS PRIOR TO ADMISSION: 1. Isosorbide mononitrate 30 mg daily. 2. Lopressor 100 mg b.i.d. 3. Hydralazine 50 mg q.6 hours. 4. Aspirin 81 mg daily. 5. Plavix 75 mg daily. 6. Nitroglycerin sublingual 0.4 mg as needed. 7. Lisinopril 40 mg daily. 8. Amlodipine 10 mg daily. ALLERGIES: THE PATIENT HAS NO KNOWN DRUG ALLERGIES. SOCIAL HISTORY: The patient lives at home. He denies tobacco use and drinks alcohol on rare social occasions. PHYSICAL EXAMINATION: GENERAL: Well-developed and well-nourished male who is in moderate distress due to abdominal pain. VITAL SIGNS: Blood pressure 83/55, pulse is 55, respirations 24, temperature was low at 94.3. HEENT: Extraocular muscles are intact. Pupils are equal and reactive to light bilaterally. Sclerae are anicteric. Oropharynx is clear and moist. NECK: Supple. No JVD. No carotid bruits. LUNGS: Clear to auscultation bilaterally. CARDIAC: Slow rate. No murmurs or gallops. ABDOMEN: Soft, left-sided tenderness to palpation. EXTREMITIES: No clubbing, cyanosis, or edema. NEUROLOGICAL: Grossly nonfocal. LABORATORY DATA: WBC 11.5, hemoglobin 7.4, platelet count is 105,000. BUN is 32, creatinine is 7.5. Repeat lactate was 3.4. Albumin is 3.8. Liver function tests are within normal limits. Troponin is 0.016. ASSESSMENT: 1. A 63-year-old male with left-sided abdominal pain due to left subcapsular and perinephric hematom a. 2. Acute blood loss anemia. 3. Hypotension. 4. Coronary artery disease. 5. Endstage renal disease, on hemodialysis. 6. Polycystic kidney disease. 7. History of hypertension. 8. Hyperlipidemia. PLAN: 1. Proceed with left renal artery embolization. 2. Admit to ICU. 3. Continue pressors. 4. Transfuse 2 units of packed RBC and 2 additional units as needed. 5. Hold home medications. 6. Pain control. 7. Condition is guarded. Dictated By: YULISSA RODRIGUEZ/KEN Conf#: [id number] DID#: [id number] CC: YULISSA CARRILLO MD;*EndCC*
[2019-01-06] MEDS: morphine 2 MG INJ IV PRN ×3 (01:02→19:48)
[2019-01-06] MEDS: NORepinephrine 8MG/250 ML (PMX 250 ML IV SCH (03:53)
[2019-01-06] MEDS: ONDANSETRON 4 MG INJ IV PRN ×3 (06:41→19:48)
--- NOTE | 2019-01-06 08:44 | CONS ---
Consult Date/Type/Reason Admit Date/Time Jan 05, 2019 at 19:30 Initial Consult Date 01/05/19 Type of Consultation: Urology Reason for Consultation Retroperitoneal bleed, polycystic kidney disease. Requesting Provider: MARIANN HEATH MD Date/Time of Note DATE: 01/06/19 TIME: 08:40 Subjective The patient appears to be much more comfortable this morning. He states his pain level is 1-2 out of 10. Objective Vitals Vital Signs Date Temp Pulse Resp B/P (MAP) Pulse Ox O2 O2 Flow FiO2 Time Delivery Rate 01/06/19 55 19 128/60 93 06:45 (82) 01/06/19 97.8 04:00 01/06/19 Nasal 2.0 00:00 Cannula 01/05/19 50 16:45 Intake and Output 01/05/19 01/05/19 01/06/19 1515:00 23:00 07:00 IntakeIntake Total 350 ml 880.25 ml BalanceBalance 350 ml 880.25 ml Exam The abdomen is distended and more tense on the left side. However patient did not complain of pain as I palpated his abdomen. Results/Medications Result Diagram: 01/06/19 0430 01/06/19 0430 Results 24 hrs Laboratory Tests Test 01/05/19 16:29 01/05/19 16:33 01/05/19 16:38 01/05/19 16:42 Bedside Glucose 130 Blood Gas Blood arterial Specimen Source Arterial Blood 01/05/2019 5:40:04 Date Drawn PM Arterial Blood 7.659 *H pH (Temp corrected) Arterial Blood 20.3 L pCO2 (Temp correct) Arterial Blood 223.8 H pO2 (Temp corrected) Arterial Blood 22.3 HCO3 Arterial Blood 2.6 Base Excess Arterial Blood 98.8 H Oxygen Saturatio n Tong Test N/A Arterial Blood Right Brachial Gas Puncture Site Arterial 0.3 Blood Carboxyhem oglobin Arterial Blood 0.3 Methemoglobin Blood Gas A-a O2 109.9 H Differential Oxyhemoglobin 98.2 Percent Blood Gas 37.0 Temperature Blood Gas 16.0 Respiration Rate Blood Gas Actual 30 Respiration Rate Blood Gas MASK - BIPAP Modality FiO2 50.0 Blood Gas 10 Pressure Support Blood Gas 15/5 IPAP/EPAP Ratio Blood Gas KUMAR eGntile Critical Value Read Back Blood Gas MDA Notified Whom Blood Gas 01/05/2019 5:43:45 Notified Time PM White Blood 7.4 # Count Red Blood Count 3.16 L Hemoglobin 9.3 L Hematocrit 29.1 L Mean Corpuscular 92.1 Volume Mean Corpuscular 29.4 Hemoglobin Mean Corpuscular 32.0 Hemoglobin Mansi nt Red Cell 14.9 H Distribution Width Platelet Count 106 #L Mean Platelet 11.7 H Volume Immature 0.300 Granulocytes % Neutrophils % 56.8 Lymphocytes % 26.5 Monocytes % 9.0 Eosinophils % 6.5 Basophils % 0.9 Nucleated Red 0.0 Blood Cells % Immature 0.020 Granulocytes # Neutrophils # 4.2 Lymphocytes # 2.0 Monocytes # 0.7 Eosinophils # 0.5 Basophils # 0.1 Nucleated Red 0.0 Blood Cells # Prothrombin Time 16.3 H Prothrombin Time 1.3 Ratio INR 1.30 International Normalized Ratio Activated 27.5 Partial Thrombop last Time Sodium Level 138 Potassium Level 3.8 Chloride Level 102 Carbon Dioxide 26 Level Anion Gap 10 Blood Urea 32 H Nitrogen Creatinine 7.50 H Est Glomerular 7 L Filtrat Rate mL/min Glucose Level 126 Calcium Level 8.7 Total Bilirubin 0.1 L Direct Bilirubin 0.00 Indirect 0.1 Bilirubin Aspartate Amino 14 L Transf (AST/SGOT ) Alanine 22 Aminotransferase (ALT/SGPT) Alkaline 67 Phosphatase Troponin I 0.016 Total Protein 6.3 Albumin 3.8 Globulin 2.50 Albumin/Globulin 1.52 Ratio POC Venous 1.2 Lactate Test 01/05/19 19:01 01/05/19 19:55 01/06/19 00:42 01/06/19 04:30 Lactic Acid 3.4 *H 7.0 *H Level White Blood 11.5 #H 12.4 H Count Red Blood Count 2.50 #L 2.94 L Hemoglobin 7.4 #L 8.6 L Hematocrit 23.2 #L 26.8 L Mean Corpuscular 92.8 91.2 Volume Mean Corpuscular 29.6 29.3 Hemoglobin Mean Corpuscular 31.9 L 32.1 Hemoglobin Mansi nt Red Cell 15.1 H 14.6 H Distribution Width Platelet Count 105 L 102 L Mean Platelet 12.5 H 12.2 H Volume Immature 1.200 H 0.500 H Granulocytes % Neutrophils % 78.6 H 89.8 H Lymphocytes % 13.8 L 4.2 L Monocytes % 4.2 4.9 Eosinophils % 1.5 0.2 Basophils % 0.7 0.4 Nucleated Red 0.0 0.0 Blood Cells % Immature 0.140 H 0.060 H Granulocytes # Neutrophils # 9.0 H 11.1 H Lymphocytes # 1.6 0.5 L Monocytes # 0.5 0.6 Eosinophils # 0.2 0.0 Basophils # 0.1 0.1 Nucleated Red 0.0 0.0 Blood Cells # Sodium Level 137 Potassium Level 4.6 Chloride Level 102 Carbon Dioxide 25 Level Anion Gap 10 Blood Urea 44 #H Nitrogen Creatinine 8.69 H Est Glomerular 6 L Filtrat Rate mL/min Glucose Level 188 Calcium Level 8.2 L Troponin I 0.077 Test 01/06/19 04:55 Lab Scanned BLOOD TRANSFUSIO Report N Home Meds Reported Medications Cholecalciferol* (Vitamin D3*) 1,000 Unit Tablet, 1000 UNIT PO DAILY for 90 Days, #90 01/05/19 Folic Acid* (Folic Acid*) 1 Mg Tablet, 1 MG PO DAILY for 90 Days, #90 01/05/19 Doxazosin Mesylate* (Doxazosin Mesylate*) 4 Mg Tablet, 4 MG PO BID for 90 Days, #180 01/05/19 Cinacalcet* (Sensipar*) 30 Mg Tab, 30 MG PO DAILY for 30 Days, #30 01/05/19 Isosorbide Mononitrate* (Isosorbide Mononitrate*) 30 Mg Tab.er.24h, 30 MG PO DAILY, TAB 05/05/18 Atorvastatin* (Atorvastatin*) 80 Mg Tablet, 80 MG PO QHS, #30 TAB 05/05/18 Metoprolol Tartrate* (Lopressor*) 100 Mg Tablet, 100 MG PO BID, #60 TAB 05/05/18 Hydralazine Hcl* (Hydralazine Hcl*) 50 Mg Tab, 50 MG PO Q6H, #60 TAB 05/05/18 Aspirin* (Aspirin* EC) 81 Mg Tablet.dr, 81 MG PO DAILY, TAB 05/05/18 Nitroglycerin* (Nitroglycerin* SL) 0.4 Mg Tab.subl, 0.4 MG SL Q5MIN PRN for CHEST PAIN, BOTTLE 04/16/18 Lisinopril* (Lisinopril*) 40 Mg Tablet, 40 MG PO DAILY, #30 TAB 04/16/18 Isosorbide (Isordil) 10 Mg Tab, 10 MG PO BID 01/04/13 Amlodipine Besylate* (Amlodipine Besylate*) 10 Mg Tablet, 10 TAB PO DAILY 04/28/12 Discontinued Reported Medications Clopidogrel Bisulfate (Clopidogrel) 75 Mg Tablet, 75 MG PO DAILY, #30 TAB 05/05/18 Medications Current Medications Norepinephrine 250 ml @ 1.875 mls/ hr TITRATE IV Last administered on 01/06/19at 03:53; Admin Dose 11.25 MLS/HR; Start 01/05/19 at 20:00 Ondansetron HCl (Zofran Inj) 4 mg Q4 PRN IV nausea Last administered on 01/06/19at 06:41; Admin Dose 4 MG; Start 01/05/19 at 21:00 Zolpidem Tartrate (Ambien) 5 mg HS MAY REPEAT X 1 PRN PO INSOMNIA; Start 01/05/19 at 21:00 Morphine Sulfate (morphine) 2 mg Q3 PRN IV moderate pain Last administered on 01/06/19at 03:57; Admin Dose 2 MG; Start 01/05/19 at 21:00 Sodium Chloride 1,000 ml @ 75 mls/hr [id number] IV Last administered on 01/06/19at 01:02; Admin Dose 75 MLS/HR; Start 01/05/19 at 23:00 Assessment/Plan Hospital Course (Demo Recall) 63-year-old male, presented to the ER by ambulance because of left upper quadrant abdominal pain for 20 minutes prior to arrival. According to EMS, he then complains of left-sided chest pain while he was on the ambulance. He was given one nitroglycerin and 325 mg aspirin. He is somewhat diaphoretic upon arrival and did not want to provide much history until later on. He complains of vague left-sided chest pain, left upper quadrant abdominal pain, denies vomiting, diarrhea. He does have a history of coronary artery disease status post stent placement and chronic kidney disease on hemodialysis on Tuesdays, and Friday. CT scan of the abdomen and pelvis showed: Autosomal dominant polycystic kidney disease. Moderate left renal subcapsular and perinephric hematomas. The blood extends superiorly into the left upper quadrant and inferiorly into the pelvis. Severe descending and sigmoid colon diverticulosis. Small volume of pelvic ascites. Moderate to severe atherosclerotic calcifications in the abdomen and pelvis, severe coronary artery calcifications. Intramuscular lipoma in the left gluteus minimus Presently the patient is in pain and his blood pressure has come down. Patient has been on Plavix. He may be bleeding from hemorrhagic cysts from his polycystic kidney disease. The patient was on vasopressors during the night and that was stopped as his blood pressure did go up. He also was transfused 2 unit of blood. His pain level today is 1-2 out of 10. We will continue to monitor his H&H and control his blood pressure, avoid any s train. And if he continues to bleed we will have to transfuse him and consider embolization of the left renal artery by the radiologist. ANNEMARIE ESCOBAR MD Jan 06, 2019 08:44
--- NOTE | 2019-01-06 11:00 | PN ---
Date/Time of Note Date/Time of Note DATE: 01/06/19 TIME: 10:56 Subjective Doing well. Less abdominal pain. No nausea or vomiting. Off pressor Objective Vitals Vital Signs Date Temp Pulse Resp B/P (MAP) Pulse Ox O2 O2 Flow FiO2 Time Delivery Rate 01/06/19 54 08:00 01/06/19 128/60 93 06:45 (82) 01/06/19 97.8 04:00 01/06/19 Nasal 2.0 00:00 Cannula 01/05/19 50 16:45 Intake and Output 01/05/19 01/05/19 01/06/19 1515:00 23:00 07:00 IntakeIntake Total 350 ml 880.25 ml BalanceBalance 350 ml 880.25 ml Clear to auscultation bilaterally Regular rate and rhythm Soft. Left-sided tenderness to palpation. No rebound or guarding. Normoactive bowel sounds. No edema Nonfocal Results Result Diagram: 01/06/1942901/06/19429 Medications Medications Current Medications Norepinephrine 250 ml @ 1.875 mls/ hr TITRATE IV Last administered on 01/06/19at 03:53; Admin Dose 11.25 MLS/HR; Start 01/05/19 at 20:00 Ondansetron HCl (Zofran Inj) 4 mg Q4 PRN IV nausea Last administered on 01/06/19at 09:38; Admin Dose 4 MG; Start 01/05/19 at 21:00 Zolpidem Tartrate (Ambien) 5 mg HS MAY REPEAT X 1 PRN PO INSOMNIA; Start 01/05/19 at 21:00 Morphine Sulfate (morphine) 2 mg Q3 PRN IV moderate pain Last administered on 01/06/19at 03:57; Admin Dose 2 MG; Start 01/05/19 at 21:00 Sodium Chloride 1,000 ml @ 75 mls/hr [id number] IV Last administered on 01/06/19at 01:02; Admin Dose 75 MLS/HR; Start 01/05/19 at 23:00 VTE Prophylaxis SCD applied (from Nsg): Yes Lines/Catheters IV Catheter Type: Central Line Central line still needed: Yes [place] in Place: No Assessment/Plan Assessment/Plan 63-year-old male with left subcapsular and perinephric hematoma Acute blood loss anemia secondary to above. Status post transfusion with 2 units of packed RBC Status post left renal artery embolization Polycystic kidney disease End-stage renal disease, on hemodialysis Hypertension, well controlled Transfer to telemetry Continue to monitor hemoglobin Urology follow-up Nephrology consultation was requested. Patient will undergo hemodialysis in aYULISSA Osborne MD Jan 06, 2019 11:00
--- NOTE | 2019-01-06 12:47 | QN ---
Documentation Comment Pt seen and examined renal consult dictated DORIS ADAMES MD Jan 06, 2019 12:47
--- NOTE | 2019-01-06 13:36 | RADRPT ---
PROCEDURE: ABDOMINAL AORTIC ANGIOGRAM (1st ORDER BRANCH ANGIOGRAM), SELECTIVE LEFT RENAL ARTERY ANG IOGRAM (SECOND ORDER BRANCH ANGIOGRAM), SELECTIVE LEFT INFRARENAL ARTERY ANGIOGRAM (THIRD ORDER BRANC H) AND SELECTIVE LEFT RENAL ARTERY EMBOLIZATION. CLINICAL INDICATION: Patient with polycystic kidney disease on hemodialysis. Acute hemorrhage seen in the left kidney with hemodynamic compromise. The patient is on pressors. TECHNIQUE: Informed consent was obtained from the patient's and daughter following careful explanation of t he risks and benefits of the procedure. Versed and Fentanyl were administered by the nurse who monito red the patient. Moderate sedation time: 60 minutes Fluoroscopy time: 6.5 min Contrast: 50 cc of Isovue 300 Number of fluoroscopic sequences: 8 The patient was placed supine on the angiographic table and the right groin was prepped and draped in the usual sterile fashion. 1% lidocaine with lidocaine was utilized for local anesthesia. Cap, mask , sterile gown, sterile gloves, large sterile sheath, hand hygiene with 2% chlorhexidine was utilized . 1% lidocaine with lidocaine was utilized for local anesthesia. A micropuncture needle was utilized to puncture the right common femoral artery and a guidewire was a dvanced into the iliac artery as confirmed by fluoroscopic guidance. The needle was exchanged over th e wire for an introducer which was placed in the right common femoral artery. A recorded ultrasound i mage was < not > obtained. The introducer was exchanged over the wire for a 5-Japanese sheath. Through the sheath and over a wire and a pigtail catheter was placed within the upper abdominal aorta . Contrast was injected and an abdominal aortogram was obtained. Through the sheath and over a wire and a Sos selective II catheter was placed within the upper abdomi nal aorta. The catheter was utilized to engage the left renal artery origin and contrast was injected . A left renal artery angiogram was obtained. A Glidewire was advanced into the left renal artery. The catheter was exchanged over the wire for a g lide catheter which was placed within a branch of the left renal artery. Contrast was injected and a peripheral left renal lower pole artery angiogram was obtained. There is active extravasation from a distal branch of the lower pole left renal artery. The lower pole left renal artery was embolized utilizing a combination of coils ranging from 6-7 mm i n size. There is possible supply through the area of active extravasation from the mid pole left renal artery . The artery was also embolized with coils ranging from 67 mm. Repeat angiogram through the catheter demonstrates occlusion of the left mid pole and lower pole qasim l arteries. The catheter was removed. The sheath in the right groin was removed and hemostasis obtained with manual compression. A sterile dressing was applied. The patient tolerated the procedure well. COMPARISON: None FINDINGS: Active extravasation seen within the lower pole of the left kidney. The mid pole and lower pole branches of the left renal artery were successfully embolized with coils. IMPRESSION: ACTIVE EXTRAVASATION SEEN WITHIN THE LOWER POLE OF THE LEFT KIDNEY. SUCCESSFUL EMBOLIZATION OF THE LEFT RENAL ARTERY WITH COILS. RPTAT: AA .Sundeep Luther MD, Date Time Electronically viewed and signed by .Sundeep Luther MD, MD on 01/06/2019 13:36 .S/
--- NOTE | 2019-01-06 16:10 | CONS ---
DATE OF ADMISSION: 01/05/2019 DATE OF CONSULTATION: 01/05/2019 REASON FOR CONSULTATION: Hemodialysis. HISTORY OF PRESENT ILLNESS: This is a 63-year-old male with a past medical history of coronary arter y disease, polycystic kidney disease, hypertension, end-stage renal disease on hemodialysis Friday, and Friday for the last 6 years, presented to the Emergency Department complaining of a monet dden onset of severe left upper abdominal pain. On 01/05/2019, the patient was also having some ches t pain on admission. He was given nitroglycerin and aspirin. On admission, the patient had a CT of the abdomen and pelvis that showed moderate left renal subcapsular and perinephric hematomas, blood e xtensive to left upper quadrant inferiorly to the pelvis. The patient was also taking Plavix at home and aspirin. The patient had initial hemoglobin of 9.3 that dipped down to 7.4. The patient was st arted on pressors yesterday; however, is currently off pressors. The patient complained of pain in t he left lower quadrant and is off of pressors currently and hemoglobin has improved to 8.6. The samantha ent also had a renal artery embolization today by radiologist. Currently, vital signs show blood pre ssure 117/55, heart rate 54, respirations 15, saturating 91% on room air and renal was consulted for hemodialysis. PAST MEDICAL HISTORY: 1. End-stage renal disease on hemodialysis secondary to polycystic kidney disease. 2. Polycystic kidney disease. 3. Hypertension. 4. Hyperlipidemia. 5. History of bradycardia. 6. Coronary artery disease. ALLERGIES: None. PAST SURGICAL HISTORY: Right Perm-A-Cath placement 3 years ago. The patient also had a left AV fist del that did not work. MEDICATIONS: Taking at home: 1. Imdur 30. 2. Lopressor 100 b.i.d. 3. Hydralazine 50 q.6h. 4. Aspirin. 5. Plavix 75. 6. Nitroglycerin. 7. Lisinopril. 8. Amlodipine 10. REVIEW OF SYSTEMS: The patient complained of lower abdominal pain. Denies any nausea, vomiting, dora st pain currently, any shortness of breath, any headache, any blurry vision. Denies any focal neurol ogical deficits. SOCIAL HISTORY: Patient does not make any urine. PHYSICAL EXAMINATION: VITAL SIGNS: Currently, blood pressure 117/55, afebrile, respiratory rate 15, pulse 56, saturating 9 5% on 2 liters. GENERAL: The patient is awake, alert, oriented, appears to be in mild distress secondary to pain. HEENT: Pupils equal, round, reactive to light. NECK: Supple. HEART: Regular rate and rhythm. LUNGS: Decreased breath sounds bilaterally. ABDOMEN: Tenderness present diffusely along the abdomen. Abdomen is distended and tense on the left side. Some bruising noted. EXTREMITIES: No clubbing, cyanosis, or edema. The patient has a right chest wall Perm-A-Cath. LABORATORY DATA: White count 12.4, hemoglobin 8.6, platelet count 102. BUN of 44, creatinine 8.69, potassium of 4.6. ASSESSMENT AND PLAN: CT of the chest initially showed no evidence of cardiopulmonary process. 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 ASSESSMENT AND PLAN: This is a 63-year-old male who presented with: 1. Shock, secondary to hemorrhagic due to acute blood loss due to renal hematoma, resolved. 2. Left subcapsular and perinephric hematoma likely secondary to rupture of polycystic kidney diseas e. 3. Acute blood loss anemia secondary to #1. 4. Status post left renal artery embolization. 5. End-stage renal disease on hemodialysis. 6. Hypertension. 7. Coronary artery disease. PLAN: At this period of time, the patient is currently stable. Agree with a repeat CT scan. Contin ue to monitor serial H and H. Continue to follow up with urology recommendations. The patient is st atus post renal artery embolization. Aspirin and Plavix are on hold. However, eventually the patien t will need to be on blood thinners. Recommend cardiology consultation. The rest of the treatment w ill depend on the patient's hospitalization course. We will continue the patient on hemodialysis fausto orrow and with no heparin. Dictated By: DORIS ADAMES RB/KEN Conf#: [id number] DID#: [id number] CC: YULISSA CARRILLO MD;*EndCC*
[2019-01-07] VITALS (52 sets, daily range): BP systolic 104–174; BP diastolic 48–91; PULSE 55–91; RESP 9–28
--- NOTE | 2019-01-07 07:47 | CONS ---
Consult Date/Type/Reason Admit Date/Time Jan 05, 2019 at 19:30 Initial Consult Date 01/05/19 Type of Consultation: Urology Reason for Consultation Left renal bleeding with retroperitoneal hematoma. Patient is now status post selective left renal artery embolization Requesting Provider: MARIANN HEATH MD Date/Time of Note DATE: 01/07/19 TIME: 07:44 Subjective Patient states he is comfortable has less pain. Objective Vitals Vital Signs Date Temp Pulse Resp B/P (MAP) Pulse Ox O2 O2 Flow FiO2 Time Delivery Rate 01/07/19 93 3.0 06:29 01/07/19 72 9 174/64 06:00 (100) 01/07/19 99.5 Nasal 04:00 Cannula 01/05/19 50 16:45 Intake and Output 01/06/19 01/06/19 01/07/19 1515:00 23:00 07:00 IntakeIntake Total 705 ml 590 ml 150 ml OutputOutput Total 30 ml BalanceBalance 675 ml 590 ml 150 ml Exam The abdomen is soft and there is no abdominal tenderness. Results/Medications Result Diagram: 01/07/19 0445 01/07/19 0445 Results 24 hrs Laboratory Tests Test 01/06/19 14:42 01/07/19 04:45 01/07/19 05:16 Hemoglobin 7.2 L 7.5 L Hematocrit 21.7 L 22.8 L White Blood Count 12.6 H Red Blood Count 2.49 L Mean Corpuscular Volume 91.6 Mean Corpuscular Hemoglobin 30.1 Mean Corpuscular 32.9 Hemoglobin Concent Red Cell Distribution Width 15.3 H Platelet Count 101 L Mean Platelet Volume 11.2 H Immature Granulocytes % 0.800 H Neutrophils % 84.8 H Lymphocytes % 6.0 L Monocytes % 7.2 Eosinophils % 0.9 Basophils % 0.3 Nucleated Red Blood Cells % 0.0 Immature Granulocytes # 0.100 H Neutrophils # 10.7 H Lymphocytes # 0.8 Monocytes # 0.9 Eosinophils # 0.1 Basophils # 0.0 Nucleated Red Blood Cells # 0.0 Sodium Level 138 Potassium Level 4.5 Chloride Level 104 Carbon Dioxide Level 24 Anion Gap 10 Blood Urea Nitrogen 61 H Creatinine 10.66 H Est Glomerular Filtrat 5 L Rate mL/min Glucose Level 81 # Calcium Level 8.4 Lab Scanned Report BLOOD TRANSFUSION Home Meds Reported Medications Cholecalciferol* (Vitamin D3*) 1,000 Unit Tablet, 1000 UNIT PO DAILY for 90 Days, #90 01/05/19 Folic Acid* (Folic Acid*) 1 Mg Tablet, 1 MG PO DAILY for 90 Days, #90 01/05/19 Doxazosin Mesylate* (Doxazosin Mesylate*) 4 Mg Tablet, 4 MG PO BID for 90 Days, #180 01/05/19 Cinacalcet* (Sensipar*) 30 Mg Tab, 30 MG PO DAILY for 30 Days, #30 01/05/19 Isosorbide Mononitrate* (Isosorbide Mononitrate*) 30 Mg Tab.er.24h, 30 MG PO DAILY, TAB 05/05/18 Atorvastatin* (Atorvastatin*) 80 Mg Tablet, 80 MG PO QHS, #30 TAB 05/05/18 Metoprolol Tartrate* (Lopressor*) 100 Mg Tablet, 100 MG PO BID, #60 TAB 05/05/18 Hydralazine Hcl* (Hydralazine Hcl*) 50 Mg Tab, 50 MG PO Q6H, #60 TAB 05/05/18 Aspirin* (Aspirin* EC) 81 Mg Tablet.dr, 81 MG PO DAILY, TAB 05/05/18 Nitroglycerin* (Nitroglycerin* SL) 0.4 Mg Tab.subl, 0.4 MG SL Q5MIN PRN for CHEST PAIN, BOTTLE 04/16/18 Lisinopril* (Lisinopril*) 40 Mg Tablet, 40 MG PO DAILY, #30 TAB 04/16/18 Isosorbide (Isordil) 10 Mg Tab, 10 MG PO BID 01/04/13 Amlodipine Besylate* (Amlodipine Besylate*) 10 Mg Tablet, 10 TAB PO DAILY 04/28/12 Discontinued Reported Medications Clopidogrel Bisulfate (Clopidogrel) 75 Mg Tablet, 75 MG PO DAILY, #30 TAB 05/05/18 Medications Current Medications Norepinephrine 250 ml @ 1.875 mls/ hr TITRATE IV Last administered on 01/06/19at 03:53; Admin Dose 11.25 MLS/HR; Start 01/05/19 at 20:00 Ondansetron HCl (Zofran Inj) 4 mg Q4 PRN IV nausea Last administered on 01/06/19at 19:48; Admin Dose 4 MG; Start 01/05/19 at 21:00 Zolpidem Tartrate (Ambien) 5 mg HS MAY REPEAT X 1 PRN PO INSOMNIA; Start 9 at 21:00 Morphine Sulfate (morphine) 2 mg Q3 PRN IV moderate pain Last administered on 01/06/19at 19:48; Admin Dose 2 MG; Start 01/05/19 at 21:00 Assessment/Plan Hospital Course (Demo Recall) 63-year-old male, presented to the ER by ambulance because of left upper qu adrant abdominal pain for 20 minutes prior to arrival. According to EMS, he then complains of left-sided chest pain while he was on the ambulance. He was given one nitroglycerin and 325 mg aspirin. He is somewhat diaphoretic upon arrival and did not want to provide much history until later on. He complains of vague left-sided chest pain, left upper quadrant abdominal pain, denies vomiting, diarrhea. He does have a history of coronary artery disease status post stent placement and chronic kidney disease on hemodialysis on Tuesdays, and Friday. CT scan of the abdomen and pelvis showed: Autosomal dominant polycystic kidney disease. Moderate left renal subcapsular and perinephric hematomas. The blood extends superiorly into the left upper quadrant and inferiorly into the pelvis. Severe descending and sigmoid colon diverticulosis. Small volume of pelvic ascites. Moderate to severe atherosclerotic calcifications in the abdomen and pelvis, severe coronary artery calcifications. 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 He is feeling better, has much less pain. His hemoglobin is down to 7.5. Continue to observe and transfuse as needed. ANNEMARIE ESCOBAR MD Jan 07, 2019 07:47
--- NOTE | 2019-01-07 08:38 | PN ---
Date/Time of Note Date/Time of Note DATE: 01/07/19 TIME: 08:35 Subjective Doing well. Less abdominal pain. No nausea or vomiting. Objective Vitals Vital Signs Date Temp Pulse Resp B/P (MAP) Pulse Ox O2 O2 Flow FiO2 Time Delivery Rate 01/07/19 93 3.0 06:29 01/07/19 72 9 174/64 06:00 (100) 01/07/19 99.5 Nasal 04:00 Cannula 01/05/19 50 16:45 Intake and Output 01/06/19 01/06/19 01/07/19 1414:59 22:59 06:59 IntakeIntake Total 780 ml 240 ml 500 ml OutputOutput Total 30 ml BalanceBalance 750 ml 240 ml 500 ml Clear to auscultation bilaterally Regular rate and rhythm Soft left-sided tenderness to palpation. No rebound or guarding. Normoactive bowel sounds. No edema Nonfocal Results Result Diagram: 01/07/1944401/07/195 Medications Medications Current Medications Norepinephrine 250 ml @ 1.875 mls/ hr TITRATE IV Last administered on 01/06/19at 03:53; Admin Dose 11.25 MLS/HR; Start 01/05/19 at 20:00 Ondansetron HCl (Zofran Inj) 4 mg Q4 PRN IV nausea Last administered on 01/06/19at 19:48; Admin Dose 4 MG; Start 01/05/19 at 21:00 Zolpidem Tartrate (Ambien) 5 mg HS MAY REPEAT X 1 PRN PO INSOMNIA; Start 01/05/19 at 21:00 Morphine Sulfate (morphine) 2 mg Q3 PRN IV moderate pain Last administered on 01/06/19at 19:48; Admin Dose 2 MG; Start 01/05/19 at 21:00 VTE Prophylaxis Risk score (from Nsg)>0 risk: 7 SCD applied (from Nsg): Yes Lines/Catheters IV Catheter Type: Saline [place] in Place: No Assessment/Plan Assessment/Plan 63-year-old male with left perinephric hematoma Status post left renal artery embolization Acute blood loss anemia Polycystic kidney disease End-stage renal disease, on hemodialysis Hypertension Coronary artery disease, stable Transfuse additional unit of packed RBC Resume hydralazine and metoprolol Nephrology follow-up Monitor hemoglobin Patient is telemetry status YULISSA CARRILLO MD Jan 07, 2019 08:38
--- NOTE | 2019-01-07 10:27 | CONS ---
Assessment/Plan Assessment/Plan Assessment/Plan (Daily) AN: This is a 63-year-old male who presented with: 1. Shock, secondary to hemorrhagic due to acute blood loss due to renal hematoma, resolved. off pressors 2. Left subcapsular and perinephric hematoma likely secondary to rupture of cysts sp left renal artery embolisation . 3. Acute blood loss anemia secondary to #1.with HB 7.5 today 4. Status post left renal artery embolization. 5. End-stage renal disease on hemodialysis. 6. Hypertension. 7. Coronary artery disease. Plan - HD today with 1 unit PRBC - will start epogen - monitor renal hematoma with serial H/H - HOLD off blood thinners - consider cards consult as pt will need to be started on blood thinners for CAD - Renally dose all meds - bed rest Consultation Date/Type/Reason Admit Date/Time Jan 05, 2019 at 19:30 Initial Consult Date 01/05/19 Requesting Provider: MARIANN HEATH MD Date/Time of Note DATE: 01/07/19 TIME: 10:27 24 HR Interval Summary Free Text/Dictation says abdominal pain is better today 1 unit of blood for hemoglobin of 7.2> hb >-7.5 today Exam/Review of Systems Exam Vitals Vital Signs Date Temp Pulse Resp B/P (MAP) Pulse Ox O2 O2 Flow FiO2 Time Delivery Rate 01/07/19 73 08:00 01/07/19 93 3.0 06:29 01/07/19 9 174/64 06:00 (100) 01/07/19 99.5 Nasal 04:00 Cannula 01/05/19 50 16:45 Intake and Output 01/06/19 01/06/19 01/07/19 1515:00 23:00 07:00 IntakeIntake Total 705 ml 590 ml 150 ml OutputOutput Total 30 ml BalanceBalance 675 ml 590 ml 150 ml Exam GENERAL: The patient is awake, alert, oriented, appears to be in mild distress secondary to pain. HEENT: Pupils equal, round, reactive to light. NECK: Supple. HEART: Regular rate and rhythm. LUNGS: Decreased breath sounds bilaterally. ABDOMEN: Tenderness present diffusely along the abdomen. Abdomen is distended and tense on the left side. Some bruising noted. EXTREMITIES: No clubbing, cyanosis, or edema. The patient has a right chest wall Perm-A-Cath. Results Result Diagram: 01/07/19 0445 01/07/19 0445 Results 24hrs Laboratory Tests Test 01/06/19 14:42 01/07/19 04:45 01/07/19 05:16 Hemoglobin 7.2 L 7.5 L Hematocrit 21.7 L 22.8 L White Blood Count 12.6 H Red Blood Count 2.49 L Mean Corpuscular Volume 91.6 Mean Corpuscular Hemoglobin 30.1 Mean Corpuscular 32.9 Hemoglobin Concent Red Cell Distribution Width 15.3 H Platelet Count 101 L Mean Platelet Volume 11.2 H Immature Granulocytes % 0.800 H Neutrophils % 84.8 H Lymphocytes % 6.0 L Monocytes % 7.2 Eosinophils % 0.9 Basophils % 0.3 Nucleated Red Blood Cells % 0.0 Immature Granulocytes # 0.100 H Neutrophils # 10.7 H Lymphocytes # 0.8 Monocytes # 0.9 Eosinophils # 0.1 Basophils # 0.0 Nucleated Red Blood Cells # 0.0 Sodium Level 138 Potassium Level 4.5 Chloride Level 104 Carbon Dioxide Level 24 Anion Gap 10 Blood Urea Nitrogen 61 H Creatinine 10.66 H Est Glomerular Filtrat 5 L Rate mL/min Glucose Level 81 # Calcium Level 8.4 Lab Scanned Report BLOOD TRANSFUSION Medications Medication Current Medications Ondansetron HCl (Zofran Inj) 4 mg Q4 PRN IV nausea Last administered on 01/06/19at 19:48; Admin Dose 4 MG; Start 01/05/19 at 21:00 Zolpidem Tartrate (Ambien) 5 mg HS MAY REPEAT X 1 PRN PO INSOMNIA; Start 01/05/19 at 21:00 Morphine Sulfate (morphine) 2 mg Q3 PRN IV moderate pain Last administered on 01/06/19at 19:48; Admin Dose 2 MG; Start 01/05/19 at 21:00 Epoetin Eddie-epbx (Retacrit (Esrd)) 6,000 unit TuThSa@1700 SC ; Start 01/07/19 at 17:00 DORIS ADAMES MD Jan 07, 2019 10:27
[2019-01-07] MEDS: ONDANSETRON 4 MG INJ IV PRN (12:07)
[2019-01-07] MEDS: morphine 2 MG INJ IV PRN ×2 (12:07→23:22)
[2019-01-07] MEDS: METOPROLOL 100 MG TAB PO SCH ×2 (13:34→23:22)
[2019-01-07] MEDS: EPOETIN ALFA-EPBX (ESRD) 3,000 UNIT/ML VIAL SC SCH (21:25)
[2019-01-08] VITALS (11 sets, daily range): BP systolic 134–160; BP diastolic 63–70; PULSE 67–92; RESP 16–20
[2019-01-08] MEDS: METOPROLOL 100 MG TAB PO SCH ×2 (08:15→21:23)
--- NOTE | 2019-01-08 09:10 | CONS ---
Consult Date/Type/Reason Admit Date/Time Jan 05, 2019 at 19:30 Initial Consult Date 01/05/19 Type of Consultation: Urology Reason for Consultation Left renal bleeding. Requesting Provider: MARIANN HEATH MD Date/Time of Note DATE: 01/08/19 TIME: 09:07 Subjective The patient is awake and alert and comfortable. He denies having any pain. Objective Vitals Vital Signs Date Temp Pulse Resp B/P (MAP) Pulse Ox O2 O2 Flow FiO2 Time Delivery Rate 01/08/19 99.5 82 20 134/63 94 Room Air 07:19 (86) 01/07/19 3.0 16:30 01/05/19 50 16:45 Intake and Output 01/07/19 01/07/19 01/08/19 1515:00 23:00 07:00 IntakeIntake Total 600 ml 50 ml 200 ml OutputOutput Total 2000 ml 0 ml BalanceBalance 600 ml -1950 ml 200 ml Exam The abdomen is soft and there is no tenderness. Results/Medications Result Diagram: 01/08/19 0611 01/08/19 0611 Results 24 hrs Laboratory Tests Test 01/07/19 19:48 01/08/19 06:11 01/08/19 07:24 01/08/19 07:44 Hemoglobin 8.8 L 8.5 L White Blood Count 13.0 H Red Blood Count 2.93 L Hematocrit 26.7 L Mean Corpuscular Volume 91.1 Mean Corpuscular 29.0 Hemoglobin Mean Corpuscular 31.8 L Hemoglobin Concent Red Cell Distribution 15.9 H Width Platelet Count 111 L Mean Platelet Volume 11.3 H Immature Granulocytes % 1.000 H Neutrophils % 82.4 H Lymphocytes % 7.4 L Monocytes % 7.0 Eosinophils % 1.9 Basophils % 0.3 Nucleated Red Blood 0.0 Cells % Immature Granulocytes # 0.130 H Neutrophils # 10.7 H Lymphocytes # 1.0 Monocytes # 0.9 Eosinophils # 0.3 Basophils # 0.0 Nucleated Red Blood 0.0 Cells # Sodium Level 139 Potassium Level 4.4 Chloride Level 101 Carbon Dioxide Level 29 Anion Gap 9 Blood Urea Nitrogen 36 #H Creatinine 8.69 H Est Glomerular Filtrat 6 L Rate mL/min Glucose Level 48 #*L Calcium Level 8.8 Bedside Glucose 54 L 89 Test 01/08/19 08:13 Bedside Glucose 103 Home Meds Reported Medications Cholecalciferol* (Vitamin D3*) 1,000 Unit Tablet, 1000 UNIT PO DAILY for 90 Days , #90 01/05/19 Folic Acid* (Folic Acid*) 1 Mg Tablet, 1 MG PO DAILY for 90 Days, #90 01/05/19 Doxazosin Mesylate* (Doxazosin Mesylate*) 4 Mg Tablet, 4 MG PO BID for 90 Days, #180 01/05/19 Cinacalcet* (Sensipar*) 30 Mg Tab, 30 MG PO DAILY for 30 Days, #30 01/05/19 Isosorbide Mononitrate* (Isosorbide Mononitrate*) 30 Mg Tab.er.24h, 30 MG PO DAILY, TAB 05/05/18 Atorvastatin* (Atorvastatin*) 80 Mg Tablet, 80 MG PO QHS, #30 TAB 05/05/18 Metoprolol Tartrate* (Lopressor*) 100 Mg Tablet, 100 MG PO BID, #60 TAB 05/05/18 Hydralazine Hcl* (Hydralazine Hcl*) 50 Mg Tab, 50 MG PO Q6H, #60 TAB 05/05/18 Aspirin* (Aspirin* EC) 81 Mg Tablet.dr, 81 MG PO DAILY, TAB 05/05/18 Nitroglycerin* (Nitroglycerin* SL) 0.4 Mg Tab.subl, 0.4 MG SL Q5MIN PRN for CHEST PAIN, BOTTLE 04/16/18 Lisinopril* (Lisinopril*) 40 Mg Tablet, 40 MG PO DAILY, #30 TAB 04/16/18 Isosorbide (Isordil) 10 Mg Tab, 10 MG PO BID 01/04/13 Amlodipine Besylate* (Amlodipine Besylate*) 10 Mg Tablet, 10 TAB PO DAILY 04/28/12 Discontinued Reported Medications Clopidogrel Bisulfate (Clopidogrel) 75 Mg Tablet, 75 MG PO DAILY, #30 TAB 05/05/18 Medications Current Medications Ondansetron HCl (Zofran Inj) 4 mg Q4 PRN IV nausea Last administered on 01/07/19at 12:07; Admin Dose 4 MG; Start 01/05/19 at 21:00 Zolpidem Tartrate (Ambien) 5 mg HS MAY REPEAT X 1 PRN PO INSOMNIA Last administered on 01/08/19at 00:34; Admin Dose 5 MG; Start 01/05/19 at 21:00 Morphine Sulfate (morphine) 2 mg Q3 PRN IV moderate pain Last administered on 01/07/19at 23:22; Admin Dose 2 MG; Start 01/05/19 at 21:00 Epoetin Eddie-epbx (Retacrit (Esrd)) 6,000 unit TuThSa@1700 SC Last administered on 01/07/19at 21:25; Admin Dose 6,000 UNIT; Start 01/07/19 at 17:00 Metoprolol Tartrate (Lopressor) 100 mg BID PO Last administered on 01/08/19at 08:15; Admin Dose 100 MG; Start 01/07/19 at 14:00 Hydralazine HCl (Apresoline) 50 mg Q6 PO Last administered on 01/08/19at 06:05; Admin Dose 50 MG; Start 01/07/19 at 13:00 Ceftriaxone Sodium 50 ml @ 100 mls/hr Q24H IVPB ; Start 01/08/19 at 09:00; Status UNV Assessment/Plan Hospital Course (Demo Recall) 63-year-old male, presented to the ER by ambulance because of left upper quadrant abdominal pain for 20 minutes prior to arrival. According to EMS, he then complains of left-sided chest pain while he was on the ambulance. He was given one nitroglycerin and 325 mg aspirin. He is somewhat diaphoretic upon arrival and did not want to provide much history until later on. He complains of vague left-sided chest pain, left upper quadrant abdominal pain, denies vomiting, diarrhea. He does have a history of coronary artery disease status post stent placement and chronic kidney disease on hemodialysis on Tuesdays, and Friday. CT scan of the abdomen and pelvis showed: Autosomal dominant polycystic kidney disease. Moderate left renal subcapsular and perinephric hematomas. The blood extends superiorly into the left upper quadrant and inferiorly into the pelvis. Severe descending and sigmoid colon diverticulosis. Small volume of pelvic ascites. Moderate to severe atherosclerotic calcifications in the abdomen and pelvis, severe coronary artery calcifications. 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 He is feeling better, has much less pain. His hemoglobin today is 8.5. Patient received a total of 4 units of blood since admission. He did have low-grade temperature and his white count is a little bit elevated. Continue the IV ceftriaxone to prevent any infection of the hematomas. And continue to monitor his H&H. Transfuse as needed ANNEMARIE ESCOBAR MD Jan 08, 2019 09:10
[2019-01-08] MEDS: CEFTRIAXONE 1 GM/50 ML (PMX) 50 ML IVPB SCH (09:32)
--- NOTE | 2019-01-08 09:54 | PN ---
Date/Time of Note Date/Time of Note DATE: 01/08/19 TIME: 09:52 Assessment/Plan VTE Prophylaxis Risk score (from [facility])>0 risk: 8 SCD applied (from [facility]): Yes Pharmacological prophylaxis: NA/contraindicated Pharm contraindication: anticoag not tolerated Lines/Catheters IV Catheter Type (from [facility]): Central Line Urinary Cath still in place: No Assessment/Plan Hospital Course 1. Shock, secondary to hemorrhagic due to acute blood loss due to renal hematoma, resolved. off pressors 2. Left subcapsular and perinephric hematoma likely secondary to rupture of cysts sp left renal artery embolization. 3. Acute blood loss anemia secondary to #1. 4. Status post left renal artery embolization. 5. End-stage renal disease on hemodialysis. 6. Hypertension. 7. Coronary artery disease. 8. Fevers 9. Overweight 10. BPH 11. Hypoglycemia, due to loss of appetite Assessment/Plan -c/w HD -start dextrose 10 in W to prevent hypoglycemia -panculture - HB 8.5 today - c/w epogen - monitor renal hematoma with serial H/H - consider cards consult as pt will need to be started on blood thinners for CAD - Renally dose all meds - bed rest -DVT proph. not tolerating a.coag. -Urology consult dr Swift is appreciated Result Diagram: 01/08/19 0611 01/08/19 0611 Results 24hrs Laboratory Tests Test 01/07/19 19:48 01/08/19 06:11 01/08/19 07:24 01/08/19 07:44 Hemoglobin 8.8 L 8.5 L White Blood Count 13.0 H Red Blood Count 2.93 L Hematocrit 26.7 L Mean Corpuscular Volume 91.1 Mean Corpuscular 29.0 Hemoglobin Mean Corpuscular 31.8 L Hemoglobin Concent Red Cell Distribution 15.9 H Width Platelet Count 111 L Mean Platelet Volume 11.3 H Immature Granulocytes % 1.000 H Neutrophils % 82.4 H Lymphocytes % 7.4 L Monocytes % 7.0 Eosinophils % 1.9 Basophils % 0.3 Nucleated Red Blood 0.0 Cells % Immature Granulocytes # 0.130 H Neutrophils # 10.7 H Lymphocytes # 1.0 Monocytes # 0.9 Eosinophils # 0.3 Basophils # 0.0 Nucleated Red Blood 0.0 Cells # Sodium Level 139 Potassium Level 4.4 Chloride Level 101 Carbon Dioxide Level 29 Anion Gap 9 Blood Urea Nitrogen 36 #H Creatinine 8.69 H Est Glomerular Filtrat 6 L Rate mL/min Glucose Level 48 #*L Calcium Level 8.8 Bedside Glucose 54 L 89 Test 01/08/19 08:13 Bedside Glucose 103 Exam/Review of Systems Exam Vitals Vital Signs Date Temp Pulse Resp B/P (MAP) Pulse Ox O2 O2 Flow FiO2 Time Delivery Rate 01/08/19 99.5 82 20 134/63 94 Room Air 07:19 (86) 01/07/19 3.0 16:30 01/05/19 50 16:45 Intake and Output 01/07/19 01/07/19 01/08/19 1515:00 23:00 07:00 IntakeIntake Total 600 ml 50 ml 200 ml OutputOutput Total 2000 ml 0 ml BalanceBalance 600 ml -1950 ml 200 ml Results Results 24hrs Laboratory Tests Test 01/07/19 19:48 01/08/19 06:11 01/08/19 07:24 01/08/19 07:44 Hemoglobin 8.8 L 8.5 L White Blood Count 13.0 H Red Blood Count 2.93 L Hematocrit 26.7 L Mean Corpuscular Volume 91.1 Mean Corpuscular 29.0 Hemoglobin Mean Corpuscular 31.8 L Hemoglobin Concent Red Cell Distribution 15.9 H Width Platelet Count 111 L Mean Platelet Volume 11.3 H Immature Granulocytes % 1.000 H Neutrophils % 82.4 H Lymphocytes % 7.4 L Monocytes % 7.0 Eosinophils % 1.9 Basophils % 0.3 Nucleated Red Blood 0.0 Cells % Immature Granulocytes # 0.130 H Neutrophils # 10.7 H Lymphocytes # 1.0 Monocytes # 0.9 Eosinophils # 0.3 Basophils # 0.0 Nucleated Red Blood 0.0 Cells # Sodium Level 139 Potassium Level 4.4 Chloride Level 101 Carbon Dioxide Level 29 Anion Gap 9 Blood Urea Nitrogen 36 #H Creatinine 8.69 H Est Glomerular Filtrat 6 L Rate mL/min Glucose Level 48 #*L Calcium Level 8.8 Bedside Glucose 54 L 89 Test 01/08/19 08:13 Bedside Glucose 103 Medications Medication Current Medications Ondansetron HCl (Zofran Inj) 4 mg Q4 PRN IV nausea Last administered on 01/07/19at 12:07; Admin Dose 4 MG; Start 01/05/19 at 21:00 Zolpidem Tartrate (Ambien) 5 mg HS MAY REPEAT X 1 PRN PO INSOMNIA Last administered on 01/08/19at 00:34; Admin Dose 5 MG; Start 01/05/19 at 21:00 Morphine Sulfate (morphine) 2 mg Q3 PRN IV moderate pain Last administered on 01/07/19at 23:22; Admin Dose 2 MG; Start 01/05/19 at 21:00 Epoetin Eddie-epbx (Retacrit (Esrd)) 6,000 unit TuThSa@1700 SC Last administered on 01/07/19at 21:25; Admin Dose 6,000 UNIT; Start 01/07/19 at 17:00 Metoprolol Tartrate (Lopressor) 100 mg BID PO Last administered on 01/08/19at 08:15; Admin Dose 100 MG; Start 01/07/19 at 14:00 Hydralazine HCl (Apresoline) 50 mg Q6 PO Last administered on 01/08/19 06:05; Admin Dose 50 MG; Start 01/07/19 at 13:00 Ceftriaxone Sodium 50 ml @ 100 mls/hr Q24H IVPB Last administered on 01/08/19 09:32; Admin Dose 100 MLS/HR; Start 01/08/19 at 09:00 PITA DEAN Jan 08, 2019 09:54
--- NOTE | 2019-01-08 10:26 | CONS ---
[facility] LIVE HCIS Consult Follow-up Patient Name: Mike Badillo Unit Number: [id number] Date of : 1955 Patient Status: Admitted Inpatient Attending Doctor: River Licea MD Edit: DORIS ADAMES MD on 01/08/19 @ 15:01 pt had fevers today cw monitor iv abx hd tmw some alterd level> hold benzo Assessment/Plan Assessment/Plan Hospital Course (Demo Recall) 1. End-stage renal disease on hemodialysis. 2. Left subcapsular and perinephric hematoma likely secondary to rupture of cysts sp left renal artery embolization. 3. Acute blood loss anemia secondary to #1. 4. Status post left renal artery embolization. 5. SIRS 6. Hypertension. 7. Coronary artery disease. 8. Fevers 9. Overweight 10. BPH 11. Hypoglycemia, due to loss of appetite 12. Shock, secondary to hemorrhagic due to acute blood loss due to renal hematoma, resolved. off pressors Assessment/Plan (Daily) -c/w HD via right chest Perm cath -consider AV fistula outpatient -start dextrose 10 in W to prevent hypoglycemia -panculture - HB 8.5 today - c/w Epogen - monitor renal hematoma with serial H/H - consider cards consult as pt will need to be started on blood thinners for CAD - Renally dose all meds - bed rest -DVT proph. not tolerating a.coag. -Urology consult dr Swift is appreciated Consultation Date/Type/Reason Admit Date/Time Jan 05, 2019 at 19:30 Initial Consult Date 01/05/19 Type of Consult nephrology Reason for Consultation Dr Suazo Requesting Provider: MARIANN HEATH MD Date/Time of Note DATE: 01/08/19 TIME: 10:23 Exam/Review of Systems Exam Vitals Vital Signs Date Temp Pulse Resp B/P (MAP) Pulse Ox O2 O2 Flow FiO2 Time Delivery Rate 01/08/19 99.5 82 20 134/63 94 Room Air 07:19 (86) 01/07/19 3.0 16:30 01/05/19 50 16:45 Intake and Output 01/07/19 01/07/19 01/08/19 1515:00 23:00 07:00 IntakeIntake Total 600 ml 50 ml 200 ml OutputOutput Total 2000 ml 0 ml BalanceBalance 600 ml -1950 ml 200 ml Exam left chest Perm cath Psych: no complaints Head: normocephalic Neck: supple Respiratory: diminished breath sounds Cardiovascular: regular rate and rhythm Gastrointestinal: soft Skin: other (skin spots) Results Result Diagram: 01/08/19 0611 01/08/19 0611 Results 24hrs Laboratory Tests Test 01/07/19 19:48 01/08/19 06:11 01/08/19 07:24 01/08/19 07:44 Hemoglobin 8.8 L 8.5 L White Blood Count 13.0 H Red Blood Count 2.93 L Hematocrit 26.7 L Mean Corpuscular Volume 91.1 Mean Corpuscular 29.0 Hemoglobin Mean Corpuscular 31.8 L Hemoglobin Concent Red Cell Distribution 15.9 H Width Platelet Count 111 L Mean Platelet Volume 11.3 H Immature Granulocytes % 1.000 H Neutrophils % 82.4 H Lymphocytes % 7.4 L Monocytes % 7.0 Eosinophils % 1.9 Basophils % 0.3 Nucleated Red Blood 0.0 Cells % Immature Granulocytes # 0.130 H Neutrophils # 10.7 H Lymphocytes # 1.0 Monocytes # 0.9 Eosinophils # 0.3 Basophils # 0.0 Nucleated Red Blood 0.0 Cells # Sodium Level 139 Potassium Level 4.4 Chloride Level 101 Carbon Dioxide Level 29 Anion Gap 9 Blood Urea Nitrogen 36 #H Creatinine 8.69 H Est Glomerular Filtrat 6 L Rate mL/min Glucose Level 48 #*L Calcium Level 8.8 Bedside Glucose 54 L 89 Test 01/08/19 08:13 Bedside Glucose 103 Medications Medication Current Medications Ondansetron HCl (Zofran Inj) 4 mg Q4 PRN IV nausea Last administered on 01/07/19at 12:07; Admin Dose 4 MG; Start 01/05/19 at 21:00 Zolpidem Tartrate (Ambien) 5 mg HS MAY REPEAT X 1 PRN PO INSOMNIA Last administered on 01/08/19 00:34; Admin Dose 5 MG; Start 01/05/19 at 21:00 Morphine Sulfate (morphine) 2 mg Q3 PRN IV moderate pain Last administered on 01/07/19 23:22; Admin Dose 2 MG; Start 01/05/19 at 21:00 Epoetin Eddie-epbx (Retacrit (Esrd)) 6,000 unit TuThSa@1700 SC Last administered on 01/07/19 21:25; Admin Dose 6,000 UNIT; Start 01/07/19 at 17:00 Metoprolol Tartrate (Lopressor) 100 mg BID PO Last administered on 01/08/19 08:15; Admin Dose 100 MG; Start 01/07/19 at 14:00 Hydralazine HCl (Apresoline) 50 mg Q6 PO Last administered on 01/08/19 06:05; Admin Dose 50 MG; Start 01/07/19 at 13:00 Ceftriaxone Sodium 50 ml @ 100 mls/hr Q24H IVPB Last administered on 01/08/19 09:32; Admin Dose 100 MLS/HR; Start 01/08/19 at 09:00 Dextrose 1,000 ml @ 40 mls/hr Q24H IV ; Start 01/08/19 at 10:30 PITA DEAN Jan 08, 2019 10:26
[2019-01-08] MEDS: DEXTROSE 10% 1,000 ML IV SCH (11:03)
--- NOTE | 2019-01-08 11:59 | PN ---
Date/Time of Note Date/Time of Note DATE: 01/08/19 TIME: 11:56 Subjective Patient somewhat lethargic. Denies any abdominal pain. No nausea or vomiting. Objective Vitals Vital Signs Date Temp Pulse Resp B/P (MAP) Pulse Ox O2 O2 Flow FiO2 Time Delivery Rate 01/08/19 99.0 75 20 135/63 90 Room Air 11:32 (87) 01/07/19 3.0 16:30 01/05/19 50 16:45 Intake and Output 01/07/19 01/07/19 01/08/19 1515:00 23:00 07:00 IntakeIntake Total 600 ml 50 ml 200 ml OutputOutput Total 2000 ml 0 ml BalanceBalance 600 ml -1950 ml 200 ml Clear to auscultation bilaterally Regular rate and rhythm Soft. Mild left-sided tenderness. No rebound or guarding. Normoactive bowel sounds. No edema Nonfocal Results Result Diagram: 01/08/1961001/08/19 06 Medications Medications Current Medications Ondansetron HCl (Zofran Inj) 4 mg Q4 PRN IV nausea Last administered on 01/07/19 12:07; Admin Dose 4 MG; Start 01/05/19 at 21:00 Zolpidem Tartrate (Ambien) 5 mg HS MAY REPEAT X 1 PRN PO INSOMNIA Last administered on 01/08/19 00:34; Admin Dose 5 MG; Start 01/05/19 at 21:00 Morphine Sulfate (morphine) 2 mg Q3 PRN IV moderate pain Last administered on 01/07/19 23:22; Admin Dose 2 MG; Start 01/05/19 at 21:00 Epoetin Eddie-epbx (Retacrit (Esrd)) 6,000 unit TuThSa@1700 SC Last administered on 01/07/19 21:25; Admin Dose 6,000 UNIT; Start 01/07/19 at 17:00 Metoprolol Tartrate (Lopressor) 100 mg BID PO Last administered on 01/08/19 08:15; Admin Dose 100 MG; Start 01/07/19 at 14:00 Hydralazine HCl (Apresoline) 50 mg Q6 PO Last administered on 01/08/19 06:05; Admin Dose 50 MG; Start 01/07/19 at 13:00 Ceftriaxone Sodium 50 ml @ 100 mls/hr Q24H IVPB Last administered on 01/08/19at 09:32; Admin Dose 100 MLS/HR; Start 01/08/19 at 09:00 Dextrose 1,000 ml @ 40 mls/hr Q24H IV Last administered on 01/08/19at 11:03; Admin Dose 40 MLS/HR; Start 01/08/19 at 10:30 VTE Prophylaxis Risk score (from Ns)>0 risk: 5 SCD applied (from Ns): Yes Lines/Catheters IV Catheter Type: Saline [place] in Place: No Assessment/Plan Assessment/Plan 63-year-old male with left perinephric hematoma Acute blood loss anemia, stable Polycystic kidney disease End-stage renal disease on hemodialysis Fever. Rule out infected hematoma Hypertension Thrombocytopenia Continue Rocephin daily Physical therapy Hemodialysis in a.m. Discharge planning in a.m. Case was discussed with science writer. We will continue IV antibiotics with dialysis as outpatient YULISSA CARRILLO MD Jan 08, 2019 11:59
[2019-01-08] MEDS: ACCU-CHEK XX SCH ×2 (16:09→21:00)
[2019-01-08] MEDS ORDERED: GUAIFENESIN/DM 5ML CUP PO PRN (23:00)
[2019-01-09] VITALS (22 sets, daily range): BP systolic 135–169; BP diastolic 57–75; PULSE 53–77; RESP 16–20
[2019-01-09] MEDS: ACCU-CHEK XX SCH ×5 (01:00→17:00)
[2019-01-09] MEDS ORDERED: LEVO250T9 PO (08:48)
--- NOTE | 2019-01-09 08:49 | PDOCDIS ---
Discharge Instructions CONDITION [id number] Patient Condition: [id number] Good HOME CARE INSTRUCTIONS: [id number] Diet Instructions: [id number] FOLLOW UP/APPOINTMENTS Follow-up Plan pcp 1 week nephrology 1 week Cardiology 1 week YULISSA CARRILLO MD Jan 09, 2019 08:49
--- NOTE | 2019-01-09 09:53 | DS ---
DATE OF ADMISSION: 01/05/2019 DATE OF DISCHARGE: 01/09/2019 DISCHARGE DIAGNOSES: 1. A 63-year-old male with left perinephric and subcapsular hematoma. 2. Acute blood loss anemia, stable. 3. Polycystic kidney disease. 4. End-stage renal disease on hemodialysis. 5. Hypertension. 6. Hyperlipidemia. 7. Coronary artery disease. PROCEDURES DURING HOSPITALIZATION: 1. CAT scan of the abdomen and pelvis. 2. Left renal artery embolization. HOSPITAL COURSE: A 63-year-old male with multiple other medical problems, presented to Emergency [facility] with complaint of left-sided abdominal pain. CAT scan of the abdomen and pelvis showed a spontaneo us left perinephric and subcapsular hematoma. The patient has known polycystic kidney disease. He was seen in consultation by Dr. Swift. The patient was not a candidate for surgical interventio n. A left renal artery embolization was recommended. The patient underwent the procedure by [facility] radiologist. There was evidence of acute blood loss anemia and the patient received several units of packed RBC. His hemoglobin remained stable following the procedure. The patient then developed low grade fever during the hospitalization. Initially, he was started on IV Rocephin. White blood cell count was normal on discharge. I prescribed 7 days of Levaquin. I he ld Plavix due to high risk of recurrent hematoma. The patient will follow up with his PCP, nephrolog ist, and fiberglass finisher as outpatient. MEDICATIONS ON DISCHARGE: 1. Levaquin 250 mg p.o. daily x7 days. 2. Amlodipine 10 mg daily. 3. Atorvastatin 80 mg at bedtime. 4. Doxazosin 4 mg b.i.d. 5. Hydralazine 50 mg q.6h. 6. Isosorbide 30 mg daily. 7. Lisinopril 40 mg daily. 8. Lopressor 100 mg b.i.d. 9. Aspirin 81 mg daily. 10. Sensipar 30 mg daily. 11. Vitamin D supplement. 12. Folic acid 1 mg daily. Dictated By: YULISSA RODRIGUEZ/NTS Conf#: [id number] DID#: [id number] CC: SRINATH SEE MD; ANNEMARIE SWIFT MD;*EndCC*
[2019-01-09] MEDS: CEFTRIAXONE 1 GM/50 ML (PMX) 50 ML IVPB SCH (10:40)
[2019-01-09] MEDS: METOPROLOL 100 MG TAB PO SCH (10:41)
[2019-01-09] MEDS: DEXTROSE 10% 1,000 ML IV SCH (10:41)
--- NOTE | 2019-01-09 11:53 | CONS ---
Assessment/Plan Assessment/Plan Hospital Course (Demo Recall) 1. End-stage renal disease on hemodialysis. 2. Left subcapsular and perinephric hematoma likely secondary to rupture of cysts sp left renal artery embolization. 3. Acute blood loss anemia secondary to #1. 4. Status post left renal artery embolization. 5. SIRS 6. Hypertension. 7. Coronary artery disease. 8. Fevers 9. Overweight 10. BPH 11. Hypoglycemia, due to loss of appetite 12. Shock, secondary to hemorrhagic due to acute blood loss due to renal hematoma, resolved. off pressors Assessment/Plan (Daily) -c/w HD via right chest Perm cath, session today -consider AV fistula outpatient -panculture, pending blood culture UA is negative - HB 8.5 today - c/w Epogen, pt might be benefited from Ferrlicit - stable H/H - consider cards consult as pt will need to be started on blood thinners for CAD - Renally dose all meds - bed rest -DVT proph. not tolerating a.coag. -Urology consult dr Swift is appreciated Consultation Date/Type/Reason Admit Date/Time Jan 05, 2019 at 19:30 Initial Consult Date 01/05/19 Type of Consult nephrology Requesting Provider: MARIANN HEATH MD Date/Time of Note DATE: 01/09/19 TIME: 11:50 24 HR Interval Summary Free Text/Dictation diffuse abdominal pain, pt had stool 1 day ago Exam/Review of Systems Exam Vitals Vital Signs Date Temp Pulse Resp B/P (MAP) Pulse Ox O2 O2 Flow FiO2 Time Delivery Rate 01/09/19 99.0 62 16 139/63 95 Nasal 11:12 (88) Cannula 01/08/19 18:45 01/08/19 3.0 15:49 Intake and Output 01/08/19 01/08/19 01/09/19 1515:00 23:00 07:00 IntakeIntake Total 50 ml 730 ml OutputOutput Total 0 ml BalanceBalance 50 ml 730 ml Exam right chest Permcath Constitutional: alert, oriented Neck: supple Respiratory: clear to auscultation Cardiovascular: regular rate and rhythm Gastrointestinal: soft Results Result Diagram: 01/09/19 0534 01/09/19 0534 Results 24hrs Laboratory Tests Test 01/08/19 15:53 6/7/19 16:00 01/08/19 21:26 01/09/19 00:03 Bedside Glucose 98 102 Blood Gas Specimen Blood arterial Source Arterial Blood 01/08/2019 4:49:35 Date Drawn PM Arterial Blood pH 7.380 (Temp corrected) Arterial Blood 47.7 H pCO2 (Temp correct) Arterial Blood pO2 68.0 L (Temp corrected) Arterial Blood 27.6 H HCO3 Arterial Blood 2.1 Base Excess Arterial Blood 92.5 L Oxygen Saturation Tong Test ACCEPTAB Arterial Blood Gas Right Radial Puncture Site Arterial 0.3 Blood Carboxyhemog lobin Arterial Blood 0.3 Methemoglobin Blood Gas A-a O2 89.9 H Differential Oxyhemoglobin 91.9 L Percent Blood Gas 37.0 Temperature Blood Gas Modality NASAL CANNULA FiO2 30.0 Blood Gas Notified PVR Whom Blood Gas Notified 01/08/2019 5:00:27 Time PM Urine Color YELLOW Urine Clarity CLOUDY A Urine pH 9.0 Urine Specific 1.014 [place] Urine Ketones NEGATIVE Urine Nitrite NEGATIVE Urine Bilirubin NEGATIVE Urine Urobilinogen NEGATIVE Urine Leukocyte NEGATIVE Esterase Urine Microscopic 1 RBC Urine Microscopic 3 WBC Urine Squamous FEW Epithelial Cells Urine Bacteria FEW A Urine Hemoglobin 1+ H Urine Glucose 1+ H Urine Total 2+ H Protein Test 01/09/19 01:18 01/09/19 05:33 01/09/19 05:34 01/09/19 06:47 Bedside Glucose 115 93 Iron Level 22 L Total Iron Binding 157 L Capacity Percent Iron 14 L Saturation White Blood Count 10.2 # Red Blood Count 2.74 L Hemoglobin 8.1 L Hematocrit 25.3 L Mean Corpuscular 92.3 Volume Mean Corpuscular 29.6 Hemoglobin Mean Corpuscular 32.0 Hemoglobin Concent Red Cell 15.1 H Distribution Width Platelet Count 123 L Mean Platelet 11.3 H Volume Immature 0.400 Granulocytes % Neutrophils % 82.9 H Lymphocytes % 6.9 L Monocytes % 5.6 Eosinophils % 3.9 Basophils % 0.3 Nucleated Red 0.0 Blood Cells % Immature 0.040 H Granulocytes # Neutrophils # 8.5 H Lymphocytes # 0.7 L Monocytes # 0.6 Eosinophils # 0.4 Basophils # 0.0 Nucleated Red 0.0 Blood Cells # Sodium Level 134 L Potassium Level 4.4 Chloride Level 99 Carbon Dioxide 27 Level Anion Gap 8 Blood Urea 49 #H Nitrogen Creatinine 10.40 H Est Glomerular 5 L Filtrat Rate mL/min Glucose Level 86 Calcium Level 8.8 Phosphorus Level 4.1 Test 01/09/19 08:27 Bedside Glucose 108 Medications Medication Current Medications Ondansetron HCl (Zofran Inj) 4 mg Q4 PRN IV nausea Last administered on 12:07; Admin Dose 4 MG; Start 01/05/19 at 21:00 Epoetin Eddie-epbx (Retacrit (Esrd)) 6,000 unit TuThSa@1700 SC Last administered on 01/07/19 21:25; Admin Dose 6,000 UNIT; Start 01/07/19 at 17:00 Metoprolol Tartrate (Lopressor) 100 mg BID PO Last administered on 01/09/19 10:41; Admin Dose 100 MG; Start 01/07/19 at 14:00 Hydralazine HCl (Apresoline) 50 mg Q6 PO Last administered on 01/09/19 06:49; Admin Dose 50 MG; Start 01/07/19 at 13:00 Ceftriaxone Sodium 50 ml @ 100 mls/hr Q24H IVPB Last administered on 01/09/19 10:40; Admin Dose 100 MLS/HR; Start 01/08/19 at 09:00 Dextrose 1,000 ml @ 40 mls/hr Q24H IV Last administered on 01/09/19 10:41; Admin Dose 40 MLS/HR; Start 01/08/19 at 10:30 Diagnostic Test (Pha) (Accu-Chek) 1 ea Q4 XX Last administered on 01/09/19 05:00; Admin Dose 1 EA; Start 01/08/19 at 17:00 Guaifenesin/ Dextromethorphan (Robitussin Dm Liquid Cup) 10 ml Q4H PRN PO cough Last administered on 01/08/19 23:36; Admin Dose 10 ML; Start 01/08/19 at 23:00 PITA DEAN Jan 09, 2019 11:53
[2019-01-09] MEDS ORDERED: ACETAMINOPHEN 325 MG TAB PO PRN (14:00)
--- NOTE | 2019-01-09 15:36 | CONS ---
Consult Date/Type/Reason Admit Date/Time Jan 05, 2019 at 19:30 Initial Consult Date 01/05/19 Type of Consultation: Urology Reason for Consultation Left subcapsular renal hematoma and perinephric hematoma Requesting Provider: MARIANN HEATH MD Date/Time of Note DATE: 01/09/19 TIME: 15:31 Subjective Patient has been complaining of abdominal pain today. He is being dialyzed at the present Objective Vitals Vital Signs Date Temp Pulse Resp B/P (MAP) Pulse Ox O2 O2 Flow FiO2 Time Delivery Rate 01/09/19 61 15:15 01/09/19 20 141/66 Nasal 4.0 12:30 (91) Cannula 01/09/19 99.0 95 11:12 01/08/19 21 18:45 Intake and Output 01/08/19 01/08/19 01/09/19 1515:00 23:00 07:00 IntakeIntake Total 50 ml 730 ml OutputOutput Total 0 ml BalanceBalance 50 ml 730 ml Exam The abdomen is soft but he has some tenderness on the left side. Results/Medications Result Diagram: 01/09/19 0534 01/09/19 0534 Results 24 hrs Laboratory Tests Test 01/08/19 15:53 01/08/19 16:00 01/08/19 21:26 01/09/19 00:03 Bedside Glucose 98 102 Blood Gas Specimen Blood arterial Source Arterial Blood 01/08/2019 4:49:35 Date Drawn PM Arterial Blood pH 7.380 (Temp corrected) Arterial Blood 47.7 H pCO2 (Temp correct) Arterial Blood pO2 68.0 L (Temp corrected) Arterial Blood 27.6 H HCO3 Arterial Blood 2.1 Base Excess Arterial Blood 92.5 L Oxygen Saturation Tong Test ACCEPTAB Arterial Blood Gas Right Radial Puncture Site Arterial 0.3 Blood Carboxyhemog lobin Arterial Blood 0.3 Methemoglobin Blood Gas A-a O2 89.9 H Differential Oxyhemoglobin 91.9 L Percent Blood Gas 37.0 Temperature Blood Gas Modality NASAL CANNULA FiO2 30.0 Blood Gas Notified PVR Whom Blood Gas Notified 01/08/2019 5:00:27 Time PM Urine Color YELLOW Urine Clarity CLOUDY A Urine pH 9.0 Urine Specific 1.014 [place] Urine Ketones NEGATIVE Urine Nitrite NEGATIVE Urine Bilirubin NEGATIVE Urine Urobilinogen NEGATIVE Urine Leukocyte NEGATIVE Esterase Urine Microscopic 1 RBC Urine Microscopic 3 WBC Urine Squamous FEW Epithelial Cells Urine Bacteria FEW A Urine Hemoglobin 1+ H Urine Glucose 1+ H Urine Total 2+ H Protein Test 01/09/19 01:18 01/09/19 05:33 01/09/19 05:34 01/09/19 06:47 Bedside Glucose 115 93 Iron Level 22 L Total Iron Binding 157 L Capacity Percent Iron 14 L Saturation Vitamin D 45.9 1,25-Dihydroxy White Blood Count 10.2 # Red Blood Count 2.74 L Hemoglobin 8.1 L Hematocrit 25.3 L Mean Corpuscular 92.3 Volume Mean Corpuscular 29.6 Hemoglobin Mean Corpuscular 32.0 Hemoglobin Concent Red Cell 15.1 H Distribution Width Platelet Count 123 L Mean Platelet 11.3 H Volume Immature 0.400 Granulocytes % Neutrophils % 82.9 H Lymphocytes % 6.9 L Monocytes % 5.6 Eosinophils % 3.9 Basophils % 0.3 Nucleated Red 0.0 Blood Cells % Immature 0.040 H Granulocytes # Neutrophils # 8.5 H Lymphocytes # 0.7 L Monocytes # 0.6 Eosinophils # 0.4 Basophils # 0.0 Nucleated Red 0.0 Blood Cells # Sodium Level 134 L Potassium Level 4.4 Chloride Level 99 Carbon Dioxide 27 Level Anion Gap 8 Blood Urea 49 #H Nitrogen Creatinine 10.40 H Est Glomerular 5 L Filtrat Rate mL/min Glucose Level 86 Calcium Level 8.8 Phosphorus Level 4.1 Test 01/09/19 08:27 01/09/19 12:28 Bedside Glucose 108 102 Home Meds Active Scripts Levofloxacin* (Levofloxacin*) 250 Mg Tablet, 250 MG PO DAILY for 7 Days, TAB Prov:YULISSA CARRILLO MD 01/09/19 Reported Medications Cholecalciferol* (Vitamin D3*) 1,000 Unit Tablet, 1000 UNIT PO DAILY for 90 Days, #90 01/05/19 Folic Acid* (Folic Acid*) 1 Mg Tablet, 1 MG PO DAILY for 90 Days, #90 01/05/19 Doxazosin Mesylate* (Doxazosin Mesylate*) 4 Mg Tablet, 4 MG PO BID for 90 Days, #180 01/05/19 Cinacalcet* (Sensipar*) 30 Mg Tab, 30 MG PO DAILY for 30 Days, #30 01/05/19 Isosorbide Mononitrate* (Isosorbide Mononitrate*) 30 Mg Tab.er.24h, 30 MG PO DAILY, TAB 05/05/18 Atorvastatin* (Atorvastatin*) 80 Mg Tablet, 80 MG PO QHS, #30 TAB 05/05/18 Metoprolol Tartrate* (Lopressor*) 100 Mg Tablet, 100 MG PO BID, #60 TAB 05/05/18 Hydralazine Hcl* (Hydralazine Hcl*) 50 Mg Tab, 50 MG PO Q6H, #60 TAB 05/05/18 Aspirin* (Aspirin* EC) 81 Mg Tablet.dr, 81 MG PO DAILY, TAB 05/05/18 Nitroglycerin* (Nitroglycerin* SL) 0.4 Mg Tab.subl, 0.4 MG SL Q5MIN PRN for CHEST PAIN, BOTTLE 04/16/18 Lisinopril* (Lisinopril*) 40 Mg Tablet, 40 MG PO DAILY, #30 TAB 04/16/18 Isosorbide (Isordil) 10 Mg Tab, 10 MG PO BID 01/04/13 Amlodipine Besylate* (Amlodipine Besylate*) 10 Mg Tablet, 10 TAB PO DAILY 04/28/12 Discontinued Reported Medications Clopidogrel Bisulfate (Clopidogrel) 75 Mg Tablet, 75 MG PO DAILY, #30 TAB 05/05/18 Medications Current Medications Ondansetron HCl (Zofran Inj) 4 mg Q4 PRN IV nausea Last administered on 01/07/19at 12:07; Admin Dose 4 MG; Start 01/05/19 at 21:00 Epoetin Eddie-epbx (Retacrit (Esrd)) 6,000 unit TuThSa@1700 SC Last administered on 01/07/19at 21:25; Admin Dose 6,000 UNIT; Start 01/07/19 at 17:00 Metoprolol Tartrate (Lopressor) 100 mg BID PO Last administered on 01/09/19at 10:41; Admin Dose 100 MG; Start 01/07/19 at 14:00 Hydralazine HCl (Apresoline) 50 mg Q6 PO Last administered on 01/09/19at 06:49; Admin Dose 50 MG; Start 01/07/19 at 13:00 Ceftriaxone Sodium 50 ml @ 100 mls/hr Q24H IVPB Last administered on 01/09/19at 10:40; Admin Dose 100 MLS/HR; Start 01/08/19 at 09:00 Dextrose 1,000 ml @ 40 mls/hr Q24H IV Last administered on 01/09/19at 10:41; Admin Dose 40 MLS/HR; Start 01/08/19 at 10:30 Diagnostic Test (Pha) (Accu-Chek) 1 ea Q4 XX Last administered on 01/09/19at 12:30; Admin Dose 1 EA; Start 01/08/19 at 17:00 Guaifenesin/ Dextromethorphan (Robitussin Dm Liquid Cup) 10 ml Q4H PRN PO cough Last administered on 01/08/19at 23:36; Admin Dose 10 ML; Start 01/08/19 at 23:00 Acetaminophen (Tylenol Tab) 650 mg Q4H PRN PO MILD PAIN(1-3)OR ELEVATED TEMP Last administered on 01/09/19at 13:45; Admin Dose 650 MG; Start 01/09/19 at 14:00 Assessment/Plan Hospital Course (Demo Recall) 63-year-old male, presented to the ER by ambulance because of left upper quadrant abdominal pain for 20 minutes prior to arrival. According to EMS, he then complains of left-sided chest pain while he was on the ambulance. He was given one nitroglycerin and 325 mg aspirin. He is somewhat diaphoretic upon arrival and did not want to provide much history until later on. He complains of vague left-sided chest pain, left upper quadrant abdominal pain, denies vomiting, diarrhea. He does have a history of coronary artery disease status post stent placement and chronic kidney disease on hemodialysis on Tuesdays, and Friday. CT scan of the abdomen and pelvis showed: Autosomal dominant polycystic kidney disease. Moderate left renal subcapsular and perinephric hematomas. The blood extends superiorly into the left upper quadrant and inferiorly into the pelvis. Severe descending and sigmoid colon diverticulosis. Small volume of pelvic ascites. Moderate to severe atherosclerotic calcifications in the abdomen and pelvis, severe coronary artery calcifications. 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 He is feeling better, today he has abdominal pain. His hemoglobin today is 8.1. Patient received a total of 4 units of blood since admission. He did have low-grade temperature 100.8 yesterday and his temperature today is 99. His white count is 10.2 Continue the IV ceftriaxone to prevent any infection of the hematomas. And continue to monitor his H&H. Transfuse as needed ANNEMARIE ESCOBAR MD Jan 09, 2019 15:36
[2019-01-09] MEDS: EPOETIN ALFA-EPBX (ESRD) 3,000 UNIT/ML VIAL SC SCH (17:25)
== END 2019-01-09 18:50 | disposition home or self-care (01) | DRG 673 ==
LOC: E/R 16:26 → ICU 19:30 → 6WM 01-07 22:14
PROVIDERS: ADMIT Internal Medicine; ATTEND Internal Medicine
PROC: 4A033R1 Measurement of Arterial Saturation, Peripheral, Percutaneous Approach (ICD-10-PCS; 2019-01-05)
PROC: 30233N1 Transfusion of Nonautologous Red Blood Cells into Peripheral Vein, Percutaneous Approach (ICD-10-PCS; 2019-01-05)
PROC: 04LA3DZ Occlusion of Left Renal Artery with Intraluminal Device, Percutaneous Approach (ICD-10-PCS; principal; 2019-01-06)
PROC: B410YZZ Fluoroscopy of Abdominal Aorta using Other Contrast (ICD-10-PCS; 2019-01-06)
PROC: B417YZZ Fluoroscopy of Left Renal Artery using Other Contrast (ICD-10-PCS; 2019-01-06)
PROC: 5A1D70Z Performance of Urinary Filtration, Intermittent, Less than 6 Hours Per Day (ICD-10-PCS; 2019-01-07)
DX: N28.89 Other specified disorders of kidney and ureter (principal); R57.8 Other shock; R18.8 Other ascites; Q61.2 Polycystic kidney, adult type; D62 Acute posthemorrhagic anemia; I12.0 Hypertensive chronic kidney disease with stage 5 chronic kidney disease or end stage renal disease; R65.10 Systemic inflammatory response syndrome (SIRS) of non-infectious origin without acute organ dysfunction; N18.6 End stage renal disease; I25.2 Old myocardial infarction; K57.30 Diverticulosis of large intestine without perforation or abscess without bleeding; D17.79 Benign lipomatous neoplasm of other sites; E78.5 Hyperlipidemia, unspecified; I25.10 Atherosclerotic heart disease of native coronary artery without angina pectoris; E66.3 Overweight; N40.0 Benign prostatic hyperplasia without lower urinary tract symptoms; Z99.2 Dependence on renal dialysis; E16.2 Hypoglycemia, unspecified; R50.9 Fever, unspecified; D69.6 Thrombocytopenia, unspecified; Z95.5 Presence of coronary angioplasty implant and graft; Z79.82 Long term (current) use of aspirin; Z79.02 Long term (current) use of antithrombotics/antiplatelets
CPT/HCPCS: 36415; 36430; 36600; 70450; 71045; 74176; 75625; 75722; 80048; 80053; 81001; 82652; 82803; 82962; 83540; 83605; 84100; 84484; 85014; 85018; 85025; 85610; 85730; 86850; 86900; 86901; 86920; 87081; 87086; 87340; 90935; 93005; 94660; C1887; C1894; J0696; J1644; J2270; J2405; J2543; J7030; J7040; P9016; Q5105; Q9967